=== PATIENT | female | born 1980 | race Caucasian/White ===

== ENCOUNTER 2017-04-29 17:23 | Emergency (ER) | payer OTHER ==
[2017-04-29 17:35] VITALS: BP 134/96
[2017-04-29] MEDS ORDERED: Lidocaine 1% 50 ML MDV INJECT ONE (18:08)
[2017-04-29] MEDS ORDERED: Diphtheria,Pertussis(Acell),Tetanus Vaccine 0.5 ML SDV IM ONE (19:12)
[2017-04-29] MEDS ORDERED: Cephalexin 500 MG Cap PO ONE (19:12)
--- NOTE | 2017-04-29 20:02 | EDM.PDOC ---
ED HPI GENERAL MEDICAL PROBLEM - General Chief Complaint: Laceration Stated Complaint: PINKY OF LEFT HAND CAUGHT ON DIRECTOR CORPORATE COMMUNICATIONS Time Seen by Provider: 04/29/17 18:00 Source of Information: Reports: Patient History Limitations: Reports: No Limitations - History of Present Illness INITIAL COMMENTS - FREE TEXT/NARRATIVE: 36-year-old female presents for evaluation treatment of a laceration to the left hand fifth finger. Injury occurred prior to arrival in the ER. Patient works at [employer]. She was at work. Reports that she sliced her finger on a meat stocker. She reports good range of motion and good sensation. No current numbness or tingling. She has a laceration along the ulnar aspect of her left hand fifth finger. She is unsure of last tetanus. She is right-handed. Onset: Today Location: Reports: Upper Extremity, Left Left Hand Pain Score (Numeric/FACES): 7 - Related Data Allergies Allergy/AdvReac Type Severity Reaction Status Date / Time No Known Allergies Allergy Verified 04/29/17 17:32 Home Meds: Home Meds ALPRAZolam [Alprazolam] 0.5 mg PO QID 02/22/15 [History] Sertraline [Zoloft] 200 mg PO DAILY 02/22/15 [History] Cephalexin [IJD: Cephalexin] 500 mg PO .EVERY 8 HOURS #20 cap 04/29/17 [Rx] Topiramate [Topamax] 100 mg PO DAILY 04/29/17 [History] Past Medical History - Past Health History Medical/Surgical History: Denies Medical/Surgical History HEENT History: Reports: Impaired Vision Other HEENT History: Wears glasses Psychiatric History: Reports: Anxiety, Depression Social & Family History - Tobacco Use Smoking Status *Q: Current Every Day Smoker Years of Tobacco use: 10 Packs/Tins Daily: 0.5 - Alcohol Use Days Per Week of Alcohol Use: 7 Number of Drinks Per Day: 10 Total Drinks Per Week: 70 - Recreational Drug Use Recreational Drug Use: No Drug Use in Last 12 Months: No ED ROS GENERAL - Review of Systems Review Of Systems: See Below Skin: Reports: Wound (left hand 5th finger ulnar aspect) Neurological: Denies: Numbness, Tingling ED EXAM, SKIN/RASH Exam: See Below Exam Limited By: No Limitations General Appearance: Alert, WD/WN, No Apparent Distress Respiratory/Chest: No Respiratory Distress Peripheral Pulses: 2+: Radial (L), Radial (R) Extremities: Normal Inspection, Normal Range of Motion (able to flex, extend, adduct and abduct fingers; able to make a fist; able to preform these with and without resistance), Normal Capillary Refill Neurological: Alert, Oriented, Normal Cognition Psychiatric: Normal Affect, Normal Mood Skin: Warm, Dry, Normal Color, Wound/Incision (6cm x2 cm flap laceration (total 10cm long) to the left hand 5th finger ulnar aspect) ED SKIN PROCEDURES - Laceration/Wound Repair Left Finger Lac/Wound length In cm: 10 (flap laceration 10cm in total lenght; wound 6cmx 2cm ) Appearance: Subcutaneous, Linear Distal NVT: Neuro & Vascular Intact, No Tendon Injury Anesthetic Type: Digital Local Anesthesia - Lidocaine (Xylocaine): 1% Plain Local Anesthetic Volume: 4cc Skin Prep: Chlorhexidine (Hibiciens), Saline, Sterile Drape Exploration/Debridement/Repair: No Foreign Material Found Closed with: Sutures Suture Size: other (5-0) # of Sutures: 19 Suture Type: Nylon, Interrupted, Simple Sterile Dressing Applied: Nurse Tetanus Status Addressed: Yes Complications: No Course - Vital Signs Last Recorded V/S: Last Vital Signs Temp 36.9 C 04/29/17 17:33 Pulse 89 04/29/17 17:33 Resp 16 04/29/17 17:33 BP 134/96 H 04/29/17 17:33 Pulse Ox 100 04/29/17 17:33 - Orders/Labs/Meds Orders: Active Orders 24 hr Category Date Time Status Vaccines to be Administered [RC] PER UNIT ROUTINE Care 04/29/17 19:12 Active Meds: Medications Discontinued Medications Generic Name Dose Route Start Last Admin Trade Name Freq PRN Reason Stop Dose Admin Cephalexin 500 mg 04/29/17 19:12 04/29/17 19:16 Keflex PO 04/29/17 19:13 500 mg ONETIME ONE Administration Diphtheria/Tetanus/Acell Pertussis 0.5 ml 04/29/17 19:12 04/29/17 19:16 Adacel IM 04/29/17 19:13 0.5 ml .ONCE ONE Administration Lidocaine HCl 50 ml 04/29/17 18:08 04/29/17 19:16 Xylocaine 1% INJECT 04/29/17 18:09 50 ml ONETIME ONE Administration - Re-Assessments/Exams Free Text/Narrative Re-Assessment/Exam: 04/29/17 19:[address] Wolfe, orthopedics on-call. He does not due skin grafts on hand. Recommend she see the hand surgeon in [place]. Recommended that we sutured the laceration down and have her follow-up. Case discussed with Dr. Bush, ER physician. Recommend she be seen within 1 week. 19 sutures total placed to the left hand fifth finger. Patient tolerated procedure well. There were no complications. She'll be started on Keflex. Tetanus was updated. Instructed to follow up with the hand surgeon this week. Patient placed in a finger splint. No complications. Departure - Departure Time of Disposition: 19:57 Disposition: Home, Self-Care 01 Condition: Fair Clinical Impression: Laceration - Discharge Information Prescriptions: Cephalexin [IJD: Cephalexin] 500 mg PO .EVERY 8 HOURS #20 cap Instructions: Laceration Care, Adult Referrals: PCP,None [Primary Care Provider] - Inocente Henriquez MD [Consulting Physician] - Forms: ED Department Discharge Additional Instructions: Please call Dr. Henriquez's office on Sunday. Call [phone]. Please let them know that your seen in the ER and have a severe laceration that may require a graft. It is recommended that you be seen within a week. Splint on at all times. Wash the wound with gentle soap and water twice a day. Cephalexin 1 3 times a day 7 days. Monitor for signs of infection such as increased swelling, pus or redness. Present to the clinic or the ER should these develop. Note given for work. tetanus was updated tonight. This is good for 10 years. Please return to the ER for any problems, questions or concerns. - My Orders Last 24 Hours: My Active Orders 04/29/17 19:12 Vaccines to be Administered [RC] PER UNIT ROUTINE - Assessment/Plan Last 24 Hours: My Active Orders 04/29/17 19:12 Vaccines to be Administered [RC] PER UNIT ROUTINE
== END 2017-04-29 20:05 | disposition home or self-care (01) ==
LOC: JD.ED 17:23
DX: S61.217A Laceration without foreign body of left little finger without damage to nail, initial encounter (principal); F17.210 Nicotine dependence, cigarettes, uncomplicated; Z79.899 Other long term (current) drug therapy; Z23 Encounter for immunization; W29.0XXA Contact with powered kitchen appliance, initial encounter
CPT/HCPCS: 12004; 90471; 90715; 99283; A9270

== ENCOUNTER 2017-11-23 19:47 | Emergency (ER) | payer SELFPAY ==
[2017-11-23 20:01] VITALS: BP 112/78
--- NOTE | 2017-11-23 21:25 | EDM.PDOC ---
<Bharti Carvalho - Last Filed: 11/23/17 23:21> ED HPI GENERAL MEDICAL PROBLEM - General Chief Complaint: Skin Complaint Stated Complaint: POSS INGROWN HAIR IN VAGINAL AREA Time Seen by Provider: 11/23/17 21:00 Source of Information: Reports: Patient History Limitations: Reports: No Limitations - History of Present Illness INITIAL COMMENTS - FREE TEXT/NARRATIVE: This is a 37-year-old female that comes in complaining of a ingrown hair in her vaginal lip area 2 days. She states the pain has been getting worse with movement, stating is a 6.5/10. When she is not moving is a 1.5/10. She has not tried any pain medication or warm soaks at home, but she does say she popped it and got some drainage but has had no relief. She's never had anything like this before. She states she has no history of MRSA or diabetes. Perineal Area Pain Score (Numeric/FACES): 10 - Related Data Allergies Allergy/AdvReac Type Severity Reaction Status Date / Time No Known Allergies Allergy Verified 11/23/17 20:01 Home Meds: Home Meds ALPRAZolam [Alprazolam] 0.5 mg PO QID 02/22/15 [History] Sertraline [Zoloft] 200 mg PO DAILY 02/22/15 [History] Topiramate [Topamax] 100 mg PO DAILY 04/29/17 [History] Past Medical History - Past Health History Medical/Surgical History: Denies Medical/Surgical History HEENT History: Reports: Impaired Vision Other HEENT History: Wears glasses Psychiatric History: Reports: Anxiety, Depression Social & Family History - Tobacco Use Smoking Status *Q: Current Every Day Smoker Years of Tobacco use: 15 Packs/Tins Daily: 1 - Recreational Drug Use Recreational Drug Use: No ED ROS GENERAL - Review of Systems Review Of Systems: See Below Constitutional: Reports: No Symptoms. Denies: Fever, Chills HEENT: Reports: No Symptoms Respiratory: Reports: No Symptoms Cardiovascular: Reports: No Symptoms Endocrine: Reports: No Symptoms GI/Abdominal: Reports: No Symptoms : Reports: No Symptoms Musculoskeletal: Reports: No Symptoms Skin: Reports: Other (ingrown hair in vaginal lip, left side) Neurological: Reports: No Symptoms Psychiatric: Reports: No Symptoms Hematologic/Lymphatic: Reports: No Symptoms Immunologic: Reports: No Symptoms ED EXAM, SKIN/RASH Exam: See Below Exam Limited By: No Limitations General Appearance: Alert, WD/WN, Mild Distress Eye Exam: Bilateral Eye: Normal Inspection, PERRL Ears: Normal External Exam, Normal Canal, Hearing Grossly Normal, Normal TMs Nose: Normal Inspection, Normal Mucosa, No Blood Throat/Mouth: Normal Inspection, Normal Lips, Normal Teeth, Normal Gums, Normal Oropharynx, Normal Voice, No Airway Compromise Head: Atraumatic, Normocephalic Neck: Normal Inspection, Supple, Non-Tender, Full Range of Motion Respiratory/Chest: No Respiratory Distress, Lungs Clear, Normal Breath Sounds, No Accessory Muscle Use, Chest Non-Tender Cardiovascular: Normal Peripheral Pulses, Regular Rate, Rhythm, No Edema, No Gallop, No JVD, No Murmur, No Rub Peripheral Pulses: 3+: Posterior Tibial (L), Posterior Tibial (R), Dorsalis Pedis (L), Dorsalis Pedis (R) GI/Abdominal: Normal Bowel Sounds, Soft, Non-Tender, No Organomegaly, No Distention, No Abnormal Bruit, No Mass (Female) Exam: Normal External Exam, Other (bartholin's cyst at 5'oclock, half dollar size) Rectal (Female) Exam: Deferred Back Exam: Normal Inspection, Full Range of Motion, NT Extremities: Normal Inspection, Normal Range of Motion, Non-Tender, No Pedal Edema, Normal Capillary Refill Neurological: Alert, Oriented, CN II-XII Intact, Normal Cognition, Normal Gait, Normal Reflexes, No Motor/Sensory Deficits Psychiatric: Normal Affect, Normal Mood Skin: Warm, Dry, Intact, Increased Warmth, Other (bartholin's cyst at 5'oclock) Location, Skin: Genital Characteristics: Erythematous Associated features: Tenderness, Induration Lymphatic: No Adenopathy ED SKIN PROCEDURES - I&D Site: vaginal area, 5'oclock region Skin Prep: Chlorhexidine (Hibiciens), Saline, Sterile Drape Local Anesthesia: Lidocaine: 1% Plain Local Anesthetic Volume: 2cc Area Incised With: 11 Blade Drainage: Purulent, Bloody, Moderate Amount Probed to Break Up Loculations: Yes Packed With: None (attempted word catheter- unsuccessful) Sterile Dressing: None Complications: No Course - Vital Signs Last Recorded V/S: Last Vital Signs Temp 98.5 F 11/23/17 19:58 Pulse 88 11/23/17 19:58 Resp 18 11/23/17 19:58 BP 112/78 11/23/17 19:58 Pulse Ox 100 11/23/17 19:58 - Orders/Labs/Meds Meds: Medications Discontinued Medications Generic Name Dose Route Start Last Admin Trade Name Cherry PRN Reason Stop Dose Admin Lidocaine HCl 20 ml 11/23/17 21:18 11/23/17 21:33 Xylocaine 1% INJECT 11/23/17 21:19 Not Given ONETIME ONE Lidocaine HCl 10 ml 11/23/17 21:26 11/23/17 21:33 Xylocaine 1% INJECT 11/23/17 21:27 10 ml ONETIME ONE Administration Lidocaine HCl Confirm 11/23/17 21:25 11/23/17 21:30 Xylocaine 1% Administered 11/23/17 21:26 Not Given Dose 10 ml .ROUTE .STK-MED ONE Oxycodone/Acetaminophen 1 tab 11/23/17 21:18 11/23/17 21:32 Percocet 325-5 Mg PO 11/23/17 21:19 1 tab ONETIME ONE Administration Departure - Departure Disposition: Home, Self-Care 01 Condition: Fair Clinical Impression: Bartholin's gland abscess - Discharge Information Instructions: Bartholin Cyst or Abscess, [id number] Referrals: Nat Moon NP [Primary Care Provider] - Perla Barnhart MD [Physician] - Forms: ED Department Discharge Additional Instructions: Rx for percocet 5-325mg 1-2 tabs PO every 6 hours prn pain#20 Rx for bactrim DS bid x 7 days #14 given from [facility] You were given medication in the ER that can affect your ability to drive and operate machinery. Do not drive or operate machinery within 12 hours of taking prescription narcotic pain medication. [id number] Tylenol or Motrin seen for pain relief. Do not take more than 4 g of Tylenol from all sources in 1 day. Do not take more than 3200 mg of ibuprofen from alls sources in 1 day. Percocet 1-2 tabs by mouth every 6 hours as needed for pain. Percocet is habit-forming, take as few these as needed to control your pain. Do not drive or operate machinery within 12 hours of taking prescription narcotic pain medication. warm, compress to the area 3-4 times a day for 15 -20 minutes Bactrim DS bid x 7 days. Follow-up with Dr. Barnhart or Sunday if not much better. Call [phone] to schedule with her. Please return to the ER should if your symptoms change or worsen. <Shi Posada - Last Filed: 11/24/17 11:28> Course - Re-Assessments/Exams Free Text/Narrative Re-Assessment/Exam: 11/23/17 22:47 I&D of a left Bartholin abscess performed. Unable to get the word catheter in place. Patient tolerated the procedure well. Purulent thick discharge and blood present. She put on Bactrim twice a day and given Percocet for pain. Follow-up with OB if her symptoms continue this week. Discharge instructions as documented. Departure - Departure Time of Disposition: 22:47 Condition: Fair
[2017-11-23] MEDS: Lidocaine 1% 10 ML MDV ONE (21:30)
[2017-11-23] MEDS: Acetaminophen/oxyCODONE 325-5 MG Tab PO ONE (21:32)
[2017-11-23] MEDS: Lidocaine 1% 20 ML MDV INJECT ONE (21:33)
[2017-11-23] MEDS: Lidocaine 1% 10 ML MDV INJECT ONE (21:33)
== END 2017-11-23 22:57 | disposition home or self-care (01) ==
LOC: JD.ED 19:47
DX: N75.1 Abscess of Bartholin's gland (principal); F17.210 Nicotine dependence, cigarettes, uncomplicated; F41.9 Anxiety disorder, unspecified; F32.9 Major depressive disorder, single episode, unspecified; Z79.899 Other long term (current) drug therapy
CPT/HCPCS: 56420; 99283; A9270; 10060; 10061

== ENCOUNTER 2019-09-19 20:23 | Emergency (ER) | payer SELFPAY ==
[2019-09-19 20:38] VITALS: BP 147/94; PULSE 100
--- NOTE | 2019-09-19 21:31 | EDM.PDOC ---
ED HPI GENERAL MEDICAL PROBLEM - General Chief Complaint: General Stated Complaint: SWELLING LEGS ANKLES WHOLE BODY AND SOB Time Seen by Provider: 09/19/19 21:15 Source of Information: Reports: Patient History Limitations: Reports: No Limitations - History of Present Illness INITIAL COMMENTS - FREE TEXT/NARRATIVE: This is a 38-year-old female. She states 2 weeks ago she stopped drinking alcohol. She also stopped her Topamax and citalopram. She apparently has a new job and she is up on her feet quite a bit and she is noted over the last 2 weeks increasing swelling in her lower extremities. She says she has increasing swelling all over her body but is worse in her lower extremities. In the mornings it seems like it is worse and seems to include the upper extremities though they are not swollen presently. And sometimes when she lies down she gets a little short of breath. Denies any congestion she denies any sore throat no cough no fever. - Related Data Allergies Allergy/AdvReac Type Severity Reaction Status Date / Time No Known Allergies Allergy Verified 09/19/19 20:38 Home Meds: Home Meds ALPRAZolam [Alprazolam] 0.5 mg PO QID 02/22/15 [History] Past Medical History - Past Health History Medical/Surgical History: Denies Medical/Surgical History HEENT History: Reports: Impaired Vision Other HEENT History: Wears glasses Psychiatric History: Reports: Addiction, Anxiety, Depression Other Psychiatric History: ETOH abuse - Past Surgical History HEENT Surgical History: Reports: Oral Surgery GI Surgical History: Reports: Appendectomy, Bariatric Procedure Other GI Surgeries/Procedures: gastric bipass Social & Family History - Family History Family Medical History: Noncontributory - Tobacco Use Smoking Status *Q: Current Every Day Smoker Years of Tobacco use: 15 Packs/Tins Daily: 0.5 - Caffeine Use Caffeine Use: Reports: None - Recreational Drug Use Recreational Drug Use: No - Living Situation & Occupation Living situation: Reports: (), Other (with friends) Occupation: Unemployed ED ROS GENERAL - Review of Systems Review Of Systems: See Below Constitutional: Denies: Fever, Chills HEENT: Reports: No Symptoms Respiratory: Reports: Shortness of Breath. Denies: Wheezing, Cough Cardiovascular: Denies: Chest Pain Endocrine: Reports: No Symptoms GI/Abdominal: Denies: Abdominal Pain, Diarrhea, Nausea, Vomiting : Reports: No Symptoms Musculoskeletal: Reports: Other (Full edema and soreness of the skin) Skin: Reports: Other (As per HPI) Neurological: Reports: No Symptoms Psychiatric: Reports: No Symptoms Hematologic/Lymphatic: Reports: No Symptoms ED EXAM, GENERAL - Physical Exam Exam: See Below Exam Limited By: No Limitations General Appearance: Alert, WD/WN, No Apparent Distress Eye Exam: Bilateral Eye: Normal Inspection Ears: Normal External Exam Throat/Mouth: Normal Voice, No Airway Compromise Head: Normocephalic Neck: Supple Respiratory/Chest: No Respiratory Distress, Lungs Clear, Normal Breath Sounds Cardiovascular: Regular Rate, Rhythm, No Murmur GI/Abdominal: Soft, Non-Tender, Other (You not really noticed any swelling of her abdomen or the prepubertal area) Back Exam: Full Range of Motion Extremities: Other (Upper extremities do not appear to have any edema, her lower extremities do have 1+ in the feet and trace up the shins, it is slightly pitting) Neurological: Alert, Oriented Psychiatric: Normal Affect, Normal Mood Skin Exam: Warm, Dry Course - Vital Signs Last Recorded V/S: Last Vital Signs Temp 98.9 F 09/19/19 20:35 Pulse 100 09/19/19 20:35 Resp 15 09/19/19 20:35 BP 147/94 H 09/19/19 20:35 Pulse Ox 100 09/19/19 20:35 - Orders/Labs/Meds Labs: Laboratory Tests 09/19/19 09/19/19 Range/Units 21:40 21:40 WBC 6.94 (3.98-10.04) K/mm3 RBC 2.45 L (3.98-5.22) M/mm3 Hgb 7.5 L D (11.2-15.7) gm/dl Hct 25.4 L (34.1-44.9) % MCV 103.7 H D (79.4-94.8) fl MCH 30.6 (25.6-32.2) pg MCHC 29.5 L (32.2-35.5) g/dl RDW Std Deviation 66.3 H (36.4-46.3) fL Plt Count 257 (182-369) K/mm3 MPV 10.5 (9.4-12.3) fl Neut % (Auto) 53.5 (34.0-71.1) % Lymph % (Auto) 26.9 (19.3-51.7) % Wise % (Auto) 11.5 (4.7-12.5) % Eos % (Auto) 6.6 H (0.7-5.8) Baso % (Auto) 1.2 (0.1-1.2) % Neut # (Auto) 3.71 (1.56-6.13) K/mm3 Lymph # (Auto) 1.87 (1.18-3.74) K/mm3 Wise # (Auto) 0.80 H (0.24-0.36) K/mm3 Eos # (Auto) 0.46 H (0.04-0.36) K/mm3 Baso # (Auto) 0.08 (0.01-0.08) K/mm3 Manual Slide Review Abnormal smear Sodium 144 (136-145) mEq/L Potassium 3.4 L (3.5-5.1) mEq/L Chloride 110 H (98-107) mEq/L Carbon Dioxide 23 (21-32) mEq/L Anion Gap 14.4 (5-15) BUN 18 (7-18) mg/dL Creatinine 0.8 (0.55-1.02) mg/dL Est Cr Clr Drug Dosing 94.54 mL/min Estimated GFR (MDRD) > 60 (>60) mL/min BUN/Creatinine Ratio 22.5 H (14-18) Glucose 90 (74-106) mg/dL Calcium 8.4 L (8.5-10.1) mg/dL Magnesium 1.8 (1.8-2.4) mg/dl Total Bilirubin 0.2 (0.2-1.0) mg/dL AST 16 (15-37) U/L ALT 17 (14-59) U/L Alkaline Phosphatase 74 (46-116) U/L Total Protein 6.2 L (6.4-8.2) g/dl Albumin 2.9 L (3.4-5.0) g/dl Globulin 3.3 gm/dL Albumin/Globulin Ratio 0.9 L (1-2) - Re-Assessments/Exams Free Text/Narrative Re-Assessment/Exam: 09/19/19 22:42 I printed out the lab results and took him to the patient and explained that she is very anemic and has a folic acid deficiency from her drinking alcohol. I indicated I was proud that she had stopped drinking 2 weeks ago and I encouraged her to stay stopped. Looks like her sodium and potassium and magnesium are back to normal. Her total protein and albumin are very low and I believe that is why she is developing peripheral edema. I explained that the liver provides the albumin which keeps the fluid in the cells and when it gets low the fluid leaks into the tissues. I suggested some compression stockings to above the knee to help push that fluid out of her feet and lower legs. I also encouraged her to call her family doctor for monitoring of her hemoglobin. The patient indicates to me she has no history of blood in her urine or blood in her stool or bleeding heavily. I have encouraged her to elevate her legs when she is lying down. I will give her a few days off work to be able to get her compression stockings and hopefully relieve some of the swelling. I do not think a fluid pill at this time is appropriate since the mechanism is related to her low albumin and total protein and her liver function. I also encouraged her to drink protein shake at least once a day to make sure she is getting enough protein. Departure - Departure Time of Disposition: 22:45 Disposition: Home, Self-Care 01 Condition: Fair Clinical Impression: Folic acid deficiency, Hypoalbuminemia, Hypoproteinemia, Peripheral edema Anemia Qualifiers: Anemia type: folate deficiency Folate deficiency anemia type: unspecified folate deficiency Qualified Code(s): D52.9 - Folate deficiency anemia, unspecified Fluid excess Qualifiers: Hypervolemia type: unspecified Qualified Code(s): E87.70 - Fluid overload, unspecified - Discharge Information *PRESCRIPTION DRUG MONITORING PROGRAM REVIEWED*: Not Applicable *COPY OF PRESCRIPTION DRUG MONITORING REPORT IN PATIENT PERI: Not Applicable Instructions: Edema, [id number] Referrals: PCP,None [Primary Care Provider] - Forms: ED Department Discharge, ED Return to Work/School Form Additional Instructions: Continue to drink lots of water but no more than 60 ounces a day, it some compression stockings that at least a go above the knee and wear them when you are up but you may take them off when you are lying down or sleeping, make sure you get at least 20 to 25 g of protein a day in your diet, you need to follow- up with your family doctor regarding your anemia which I believe is Folic acid deficiency so make sure you stay on your vitamins that you are taking, your doctor on Sunday tell them you are in the ER and that she needs follow-up and I am sure they will see you this week. Urine to the ER as needed. Sepsis Event Note - Evaluation Sepsis Screening Result: No Definite Risk - Focused Exam Vital Signs: Vital Signs Temp Pulse Resp BP Pulse Ox 09/19/19 20:35 98.9 F 100 15 147/94 H 100 Date Exam was Performed: 09/19/19 Time Exam was Performed: 22:42
== END 2019-09-19 23:03 | disposition home or self-care (01) ==
LOC: JD.ED 20:23
DX: R60.0 Localized edema (principal); E88.09 Other disorders of plasma-protein metabolism, not elsewhere classified; E77.8 Other disorders of glycoprotein metabolism; D52.9 Folate deficiency anemia, unspecified; E87.70 Fluid overload, unspecified; F41.9 Anxiety disorder, unspecified; F32.9 Major depressive disorder, single episode, unspecified; F17.210 Nicotine dependence, cigarettes, uncomplicated; Z79.899 Other long term (current) drug therapy
CPT/HCPCS: 36415; 80053; 83735; 85025; 99283

== ENCOUNTER 2019-11-01 21:23 | Emergency (ER) | payer SELFPAY ==
[2019-11-01 21:37] VITALS: BP 127/97; PULSE 107
--- NOTE | 2019-11-01 21:49 | EDM.PDOCBH ---
ED HPI GENERAL MEDICAL PROBLEM - General Chief Complaint: Drug or Alcohol Abuse Stated Complaint: INTOXICATED NEEDS DETOX Time Seen by Provider: 11/01/19 21:31 Source of Information: Reports: Patient History Limitations: Reports: Intoxication - History of Present Illness INITIAL COMMENTS - FREE TEXT/NARRATIVE: This is a 39-year-old female. She is well-known to the ER. She comes tonight and she is dropped off by her fianc because she has been drinking a lot of whiskey today and her last drink was 20 minutes ago. The patient has a history of heavy drinking for the last 10 years. She does have a history of acute pancreatitis and alcoholic hepatitis as well as thrombocytopenia EMEA related to folic acid low potassium and low magnesium as well as low proteins and albumin. The patient cannot really add to this history other than saying that she has been drinking. She does indicate that when she stops drinking and become sober she has nightmares and she goes through some withdrawal. She is obviously not going through withdrawal at this time. She denies any recent illnesses no colds no coughs no fever no chills she denies any vomiting. - Related Data Allergies Allergy/AdvReac Type Severity Reaction Status Date / Time No Known Allergies Allergy Verified 11/01/19 21:31 Home Meds: Home Meds ALPRAZolam [Alprazolam] 0.5 mg PO QID 02/22/15 [History] Past Medical History - Past Health History Medical/Surgical History: Denies Medical/Surgical History HEENT History: Reports: Impaired Vision Other HEENT History: Wears glasses Psychiatric History: Reports: Addiction, Anxiety, Depression Other Psychiatric History: ETOH abuse - Past Surgical History HEENT Surgical History: Reports: Oral Surgery GI Surgical History: Reports: Appendectomy, Bariatric Procedure Other GI Surgeries/Procedures: gastric bipass Social & Family History - Family History Family Medical History: Noncontributory - Tobacco Use Smoking Status *Q: Current Every Day Smoker Years of Tobacco use: 20 Packs/Tins Daily: 0.5 - Caffeine Use Caffeine Use: Reports: Coffee - Recreational Drug Use Recreational Drug Use: No - Living Situation & Occupation Living situation: Reports: (), Other (with friends) Occupation: Unemployed ED ROS GENERAL - Review of Systems Review Of Systems: See Below Constitutional: Denies: Fever, Chills HEENT: Reports: No Symptoms Respiratory: Reports: No Symptoms Cardiovascular: Reports: No Symptoms Endocrine: Reports: No Symptoms GI/Abdominal: Denies: Abdominal Pain, Constipation, Diarrhea, Nausea, Vomiting : Reports: No Symptoms Musculoskeletal: Reports: No Symptoms Skin: Reports: No Symptoms Neurological: Reports: No Symptoms Psychiatric: Reports: Depression, Other (Alcohol abuse) Hematologic/Lymphatic: Reports: Anemia ED EXAM, BEHAVIORAL HEALTH - Physical Exam Exam: See Below Exam Limited By: Intoxication General Appearance: Alert, WD/WN, No Apparent Distress, Lethargic Eye Exam: Bilateral Eye: Normal Inspection Ears: Normal External Exam, Normal Canal, Normal TMs Nose: Normal Inspection Throat/Mouth: Normal Inspection, Normal Lips, Normal Oropharynx, No Airway Compromise, Other (Patient is noted to have slurred speech) Head: Normocephalic Neck: Supple Respiratory/Chest: No Respiratory Distress, Lungs Clear, Normal Breath Sounds Cardiovascular: Regular Rate, Rhythm, No Murmur GI/Abdominal: Soft, Non-Tender, Other (Bowel sounds are present but they are decreased) Back Exam: Full Range of Motion Extremities: Normal Inspection, Normal Range of Motion Neurological: Alert, Other (Due to the patient's inebriation she was brought into the ER by wheelchair because she is having a difficult time keeping her balance) Psychiatric: Alert, Flat Affect, Tearful Skin Exam: Warm, Dry COURSE, BEHAVIORAL HEALTH COMP - Course Vital Signs: Last Vital Signs Temp 98.6 F 11/01/19 21:36 Pulse 107 H 11/01/19 21:36 Resp 16 11/01/19 21:36 BP 127/97 H 11/01/19 21:36 Pulse Ox 98 11/01/19 21:36 Orders, Labs, Meds: Active Orders 24 hr Category Date Time Status UA W/MICROSCOPIC [URIN] Stat Lab 11/01/19 21:50 Ordered Sodium Chloride 0.9% [Normal Saline] 1,000 ml Med 11/01/19 22:00 Active IV ASDIRECTED Sodium Chloride 0.9% [Normal Saline] 1,000 ml Med 11/01/19 23:15 Active IV ASDIRECTED Medication Orders Sodium Chloride (Normal Saline) 1,000 mls @ 1,000 mls/hr IV ASDIRECTED TOM Last Admin: 11/01/19 21:55 Dose: 1,000 mls/hr Sodium Chloride (Normal Saline) 1,000 mls @ 999 mls/hr IV ASDIRECTED [facility] Laboratory Tests 11/01/19 11/01/19 11/01/19 Range/Units 20:50 20:50 20:50 WBC 8.53 (3.98-10.04) K/mm3 RBC 3.40 L (3.98-5.22) M/mm3 Hgb 9.4 L D (11.2-15.7) gm/dl Hct 31.6 L (34.1-44.9) % MCV 92.9 D (79.4-94.8) fl MCH 27.6 (25.6-32.2) pg MCHC 29.7 L (32.2-35.5) g/dl RDW Std Deviation 59.8 H (36.4-46.3) fL Plt Count 157 L D (182-369) K/mm3 MPV 9.9 (9.4-12.3) fl Neut % (Auto) 33.2 L (34.0-71.1) % Lymph % (Auto) 58.6 H (19.3-51.7) % [place] % (Auto) 5.2 (4.7-12.5) % Eos % (Auto) 2.3 (0.7-5.8) Baso % (Auto) 0.5 (0.1-1.2) % Neut # (Auto) 2.83 (1.56-6.13) K/mm3 Lymph # (Auto) 5.00 H (1.18-3.74) K/mm3 [place] # (Auto) 0.44 H (0.24-0.36) K/mm3 Eos # (Auto) 0.20 (0.04-0.36) K/mm3 Baso # (Auto) 0.04 (0.01-0.08) K/mm3 Manual Slide Review Abnormal smear Sodium 149 H (136-145) mEq/L Potassium 3.4 L (3.5-5.1) mEq/L Chloride 110 H (98-107) mEq/L Carbon Dioxide 24 (21-32) mEq/L Anion Gap 18.4 H (5-15) BUN 21 H (7-18) mg/dL Creatinine 0.8 (0.55-1.02) mg/dL Est Cr Clr Drug Dosing TNP Estimated GFR (MDRD) > 60 (>60) mL/min BUN/Creatinine Ratio 26.3 H (14-18) Glucose 100 (74-106) mg/dL Calcium 8.3 L (8.5-10.1) mg/dL Magnesium 2.0 (1.8-2.4) mg/dl Total Bilirubin 0.2 (0.2-1.0) mg/dL AST 19 (15-37) U/L ALT 24 (14-59) U/L Alkaline Phosphatase 76 (46-116) U/L Total Protein 7.5 (6.4-8.2) g/dl Albumin 3.7 (3.4-5.0) g/dl Globulin 3.8 gm/dL Albumin/Globulin Ratio 1.0 (1-2) Lipase 122 (73-393) U/L Ethyl Alcohol 0.45 (0.00) gm% Medications Generic Name Dose Route Start Last Admin Trade Name Freq PRN Reason Stop Dose Admin Sodium Chloride 1,000 mls @ 1,000 mls/hr 11/01/19 22:00 11/01/19 21:55 Normal Saline IV 1,000 mls/hr ASDIRECTED TOM Administration Sodium Chloride 1,000 mls @ 999 mls/hr 11/01/19 23:15 Normal Saline IV ASDIRECTED TOM Discontinued Medications Generic Name Dose Route Start Last Admin Trade Name Freq PRN Reason Stop Dose Admin Ondansetron HCl 4 mg 11/01/19 21:50 11/01/19 21:56 Zofran IVPUSH 11/01/19 21:51 4 mg ONETIME ONE Administration Discharge vs Psych Eval/Treatment:: 11/01/19 22:23 The patient apparently tore out her IV that we had started and she walked around the back of the ER and walked through the [facility] area tearing down part of the plastic wall. She indicates that she wants something done and I explained to her she pulled out the IV that we were doing something with and that we are waiting on her blood work to get back. She somehow thinks that we can give her medicine to make her less drunk. I explained there is no such medicine and that is where fluids do to help her. If she continues to be combative and not cooperative I will call the police and have her transported to the [facility] for detox. 05/09/20 23:32 I spoke to the patient's fianc at is going to take 16 or so hours to get the alcohol out of her system and we do not normally house them in the hospital for this to happen. We would like him to go home and get sober and then come back to the ER if they are having withdrawal symptoms and then we can help him through these withdrawal symptoms as they desire to get off alcohol. He states he understands. Departure - Departure Time of Disposition: 23:29 Disposition: Home, Self-Care 01 Condition: Poor Clinical Impression: Alcohol abuse, Alcohol intoxication, Alcohol use disorder - Discharge Information *PRESCRIPTION DRUG MONITORING PROGRAM REVIEWED*: Not Applicable *COPY OF PRESCRIPTION DRUG MONITORING REPORT IN PATIENT PERI: Not Applicable Instructions: Alcohol Use Disorder, Alcohol Intoxication, [id number] Referrals: PCP,None [Primary Care Provider] - Forms: ED Department Discharge Additional Instructions: Go home and sleep to get rid of this alcohol in your system, once you awaken if you are having symptoms of withdrawal such as shaking or seeing things or having nightmares then return to the ER without drinking any more alcohol, as long as you have significant alcohol in your system and your not having withdrawal we will normally not put you in the hospital it is only when you start having withdrawal that we can help you through these symptoms as you want to get off the alcohol, return to the ER as needed Sepsis Event Note - Evaluation Sepsis Screening Result: No Definite Risk - Focused Exam Vital Signs: Vital Signs Temp Pulse Resp BP Pulse Ox 11/01/19 21:36 98.6 F 107 H 16 127/97 H 98 Date Exam was Performed: 11/01/19 Time Exam was Performed: 23:32 - My Orders Last 24 Hours: My Active Orders 11/01/19 21:50 UA W/MICROSCOPIC [URIN] Stat 11/01/19 22:00 Sodium Chloride 0.9% [Normal Saline] 1,000 ml IV ASDIRECTED 11/01/19 23:15 Sodium Chloride 0.9% [Normal Saline] 1,000 ml IV ASDIRECTED - Assessment/Plan Last 24 Hours: My Active Orders 11/01/19 21:50 UA W/MICROSCOPIC [URIN] Stat 11/01/19 22:00 Sodium Chloride 0.9% [Normal Saline] 1,000 ml IV ASDIRECTED 11/01/19 23:15 Sodium Chloride 0.9% [Normal Saline] 1,000 ml IV ASDIRECTED
[2019-11-01] MEDS ORDERED: Ondansetron 4 MG/2 ML SDV IVPUSH ONE (21:50)
[2019-11-01] MEDS ORDERED: Sodium Chloride 0.9% 1,000 ML IV SCH ×2 (22:00→23:15)
== END 2019-11-01 23:44 | disposition home or self-care (01) ==
LOC: JD.ED 21:23
DX: F10.129 Alcohol abuse with intoxication, unspecified (principal); F41.9 Anxiety disorder, unspecified; F32.9 Major depressive disorder, single episode, unspecified; F17.210 Nicotine dependence, cigarettes, uncomplicated; Z90.49 Acquired absence of other specified parts of digestive tract; Z79.899 Other long term (current) drug therapy
CPT/HCPCS: 36415; 80053; 80307; 83690; 83735; 85025; 96374; 99284; J2405; J7030; 99283

== ENCOUNTER 2020-04-23 14:39 | Emergency (ER) | payer MEDICAID ==
[2020-04-23 15:02] VITALS: BP 141/103; PULSE 117
[2020-04-23] MEDS ORDERED: Sodium Chloride 0.9% 1,000 ML IV ONE (15:11)
[2020-04-23] MEDS ORDERED: Sodium Chloride 0.9% 10 ML Syringe FLUSH PRN (15:11)
[2020-04-23] MEDS ORDERED: LORazepam 2 MG/ML SDV IVPUSH ONE (15:11)
[2020-04-23] MEDS ORDERED: Metoclopramide 10 MG/2 ML SDV IVPUSH ONE (15:11)
[2020-04-23] MEDS ORDERED: Folic Acid 1 MG Tab PO ONE (15:11)
[2020-04-23] MEDS ORDERED: Thiamine 100 MG Tab PO ONE (15:11)
--- NOTE | 2020-04-23 15:35 | EDM.PDOC ---
ED HPI GENERAL MEDICAL PROBLEM - General Chief Complaint: Drug or Alcohol Abuse Stated Complaint: DETOX Time Seen by Provider: 04/23/20 15:10 Source of Information: Reports: Patient, Old Records, RN Notes Reviewed History Limitations: Reports: No Limitations - History of Present Illness INITIAL COMMENTS - FREE TEXT/NARRATIVE: Patient is a 39-year-old female who presents to the ED for the evaluation of her alcohol intoxication. She states that she has been sober for about 3 months at this time. She notes that she has had recent foot surgery, and she has been sitting around having nothing to do, so she started drinking again. She is got a 3-day history of drinking 1 bottle of whiskey daily. She states her last alcohol use was at around 11 AM. She states that she started drinking at 5 AM this morning, and she is gotten down about a half bottle of whiskey today. She states that she has a history of anxiety depression, her primary care provider is Lynne Thompson. Patient states that she would like some help to stop drinking again, she is rather tearful in the room. Patient denies any other sick-like symptoms, fever/chills, cough/shortness of breath, nausea/vomiting/diarrhea. Patient notes she has a roughly 10-year history of drinking alcohol in entirety Bilateral Foot Pain Score (Numeric/FACES): 5 - Related Data Allergies Allergy/AdvReac Type Severity Reaction Status Date / Time No Known Allergies Allergy Verified 04/23/20 15:04 Home Meds: Home Meds ALPRAZolam [Alprazolam] 0.25 mg PO BID PRN 02/22/15 [History] Ferrous Sulfate [Iron] 325 mg PO DAILY 04/23/20 [History] Pnv No.95/Ferrous Fum/Folic AC [ Caplet] 1 cap PO DAILY 04/23/20 [ History] Sertraline [Zoloft] 100 mg PO DAILY 04/23/20 [History] Spironolactone [Aldactone] 25 mg PO DAILY 04/23/20 [History] Past Medical History HEENT History: Reports: Impaired Vision Other HEENT History: Wears glasses BREAD PANNER History: Reports: Other (See Below) Other BREAD PANNER History: iud bleeding since March 12, 2020 Musculoskeletal History: Reports: Other (See Below) Other Musculoskeletal History: bilateral hammer toe surgery Psychiatric History: Reports: Addiction, Anxiety, Depression Other Psychiatric History: ETOH abuse - Past Surgical History HEENT Surgical History: Reports: Oral Surgery GI Surgical History: Reports: Appendectomy, Bariatric Procedure Other GI Surgeries/Procedures: gastric bipass Social & Family History - Family History Family Medical History: Noncontributory - Tobacco Use Tobacco Use Status *Q: Current Every Day Tobacco User Years of Tobacco use: 20 Packs/Tins Daily: 0.5 - Caffeine Use Caffeine Use: Reports: Coffee - Alcohol Use Alcohol Use History: Yes Days Per Week of Alcohol Use: 3 Number of Drinks Per Day: 5 Total Drinks Per Week: 15 Alcohol Use in Last Twelve Months: Yes Alcohol Use Comment: 10-year alcohol use history, she did enjoy a 3-month sober period this year, with current relapse of a 3-day binge history. - Recreational Drug Use Recreational Drug Use: No - Living Situation & Occupation Living situation: Reports: (), Other (with friends) Occupation: Unemployed ED ROS GENERAL - Review of Systems Review Of Systems: Comprehensive ROS is negative, except as noted in HPI. ED EXAM, GENERAL - Physical Exam Exam: See Below Exam Limited By: No Limitations General Appearance: Alert, WD/WN, No Apparent Distress Throat/Mouth: Normal Inspection, Normal Lips, Normal Teeth, Normal Gums, Normal Oropharynx, Normal Voice, No Airway Compromise Head: Atraumatic, Normocephalic Neck: Normal Inspection Respiratory/Chest: No Respiratory Distress, Lungs Clear, Normal Breath Sounds, No Accessory Muscle Use, Chest Non-Tender Cardiovascular: Normal Peripheral Pulses, Regular Rate, Rhythm, No Murmur Peripheral Pulses: 2+: Radial (L), Radial (R) Extremities: Normal Inspection, Normal Capillary Refill Neurological: Alert, Oriented, Normal Cognition, No Motor/Sensory Deficits Psychiatric: Tearful (pt is somewhat dramatic and crying. She is obviously intoxicated at this time.) Skin Exam: Warm, Dry, Intact, Normal Color, No Rash Course - Vital Signs Last Recorded V/S: Last Vital Signs Temp 98.3 F 04/23/20 15:02 Pulse 117 H 04/23/20 15:02 Resp 20 04/23/20 15:02 BP 141/103 H 04/23/20 15:02 Pulse Ox 94 L 04/23/20 15:02 - Orders/Labs/Meds Orders: Active Orders 24 hr Category Date Time Status Peripheral IV Care [RC] . DIRECTED Care 04/23/20 15:11 Active Sodium Chloride 0.9% [Saline Flush] Med 04/23/20 15:11 Active 10 ml FLUSH ASDIRECTED PRN Peripheral IV Insertion Adult [OM.PC] Stat Oth 04/23/20 15:11 Ordered Medication Orders Sodium Chloride (Saline Flush) 10 ml FLUSH ASDIRECTED PRN PRN Reason: Keep Vein Open Last Admin: 04/23/20 15:25 Dose: 10 ml Documented by: JACK Labs: Laboratory Tests 04/23/20 04/23/20 04/23/20 Range/Units 15:25 15:25 15:25 WBC 7.38 (3.98-10.04) K/mm3 RBC 4.28 (3.98-5.22) M/mm3 Hgb 9.7 L (11.2-15.7) gm/dl Hct 33.7 L (34.1-44.9) % MCV 78.7 L D (79.4-94.8) fl MCH 22.7 L (25.6-32.2) pg MCHC 28.8 L (32.2-35.5) g/dl RDW Std Deviation 50.2 H (36.4-46.3) fL Plt Count 219 (182-369) K/mm3 MPV 9.9 (9.4-12.3) fl Neut % (Auto) 56.5 (34.0-71.1) % Lymph % (Auto) 31.6 (19.3-51.7) % [place] % (Auto) 6.2 (4.7-12.5) % Eos % (Auto) 4.7 (0.7-5.8) Baso % (Auto) 0.7 (0.1-1.2) % Neut # (Auto) 4.17 (1.56-6.13) K/mm3 Lymph # (Auto) 2.33 (1.18-3.74) K/mm3 [place] # (Auto) 0.46 H (0.24-0.36) K/mm3 Eos # (Auto) 0.35 (0.04-0.36) K/mm3 Baso # (Auto) 0.05 (0.01-0.08) K/mm3 Manual Slide Review Abnormal smear PT 10.2 (9.7-12.0) SECONDS INR 0.95 Sodium 146 H (136-145) mEq/L Potassium 3.8 (3.5-5.1) mEq/L Chloride 109 H (98-107) mEq/L Carbon Dioxide 22 (21-32) mEq/L Anion Gap 18.8 H (5-15) BUN 18 (7-18) mg/dL Creatinine 0.8 (0.55-1.02) mg/dL Est Cr Clr Drug Dosing 97.13 mL/min Estimated GFR (MDRD) > 60 (>60) mL/min BUN/Creatinine Ratio 22.5 H (14-18) Glucose 108 H (74-106) mg/dL Calcium 8.3 L (8.5-10.1) mg/dL Magnesium 2.0 (1.8-2.4) mg/dl Total Bilirubin 0.2 (0.2-1.0) mg/dL AST 25 (15-37) U/L ALT 26 (14-59) U/L Alkaline Phosphatase 93 (46-116) U/L Total Protein 7.2 (6.4-8.2) g/dl Albumin 3.4 (3.4-5.0) g/dl Globulin 3.8 gm/dL Albumin/Globulin Ratio 0.9 L (1-2) Ethyl Alcohol 0.28 (0.00) gm% 10/30/20 Range/Units 18:05 WBC (3.98-10.04) K/mm3 RBC (3.98-5.22) M/mm3 Hgb (11.2-15.7) gm/dl Hct (34.1-44.9) % MCV (79.4-94.8) fl MCH (25.6-32.2) pg MCHC (32.2-35.5) g/dl RDW Std Deviation (36.4-46.3) fL Plt Count (182-369) K/mm3 MPV (9.4-12.3) fl Neut % (Auto) (34.0-71.1) % Lymph % (Auto) (19.3-51.7) % [place] % (Auto) (4.7-12.5) % Eos % (Auto) (0.7-5.8) Baso % (Auto) (0.1-1.2) % Neut # (Auto) (1.56-6.13) K/mm3 Lymph # (Auto) (1.18-3.74) K/mm3 [place] # (Auto) (0.24-0.36) K/mm3 Eos # (Auto) (0.04-0.36) K/mm3 Baso # (Auto) (0.01-0.08) K/mm3 Manual Slide Review PT (9.7-12.0) SECONDS INR Sodium (136-145) mEq/L Potassium (3.5-5.1) mEq/L Chloride (98-107) mEq/L Carbon Dioxide (21-32) mEq/L Anion Gap (5-15) BUN (7-18) mg/dL Creatinine (0.55-1.02) mg/dL Est Cr Clr Drug Dosing mL/min Estimated GFR (MDRD) (>60) mL/min BUN/Creatinine Ratio (14-18) Glucose (74-106) mg/dL Calcium (8.5-10.1) mg/dL Magnesium (1.8-2.4) mg/dl Total Bilirubin (0.2-1.0) mg/dL AST (15-37) U/L ALT (14-59) U/L Alkaline Phosphatase (46-116) U/L Total Protein (6.4-8.2) g/dl Albumin (3.4-5.0) g/dl Globulin gm/dL Albumin/Globulin Ratio (1-2) Ethyl Alcohol 0.20 (0.00) gm% Meds: Medications Generic Name Dose Route Start Last Admin Trade Name Freq PRN Reason Stop Dose Admin Sodium Chloride 10 ml 04/23/20 15:11 04/23/20 15:25 Saline Flush FLUSH 10 ml ASDIRECTED PRN Administration Keep Vein Open Discontinued Medications Generic Name Dose Route Start Last Admin Trade Name Freq PRN Reason Stop Dose Admin Folic Acid 1 mg 04/23/20 15:11 04/23/20 15:25 Folic Acid PO 04/23/20 15:12 1 mg ONETIME ONE Administration Sodium Chloride 1,000 mls @ 999 mls/hr 04/23/20 15:11 04/23/20 15:25 Normal Saline IV 04/23/20 16:11 999 mls/hr ONETIME ONE Administration Lactated Ringer's 1,000 mls @ 999 mls/hr 04/23/20 16:41 04/23/20 16:55 Ringers, Lactated IV 04/23/20 17:41 999 mls/hr .BOLUS ONE Administration Lorazepam 1 mg 04/23/20 15:11 04/23/20 15:25 Ativan IVPUSH 04/23/20 15:12 1 mg ONETIME ONE Administration Metoclopramide HCl 10 mg 04/23/20 15:11 04/23/20 15:25 Reglan IVPUSH 04/23/20 15:12 10 mg ONETIME ONE Administration Thiamine HCl 100 mg 04/23/20 15:11 04/23/20 15:25 Vitamin B-1 PO 04/23/20 15:12 100 mg ONETIME ONE Administration - Re-Assessments/Exams Free Text/Narrative Re-Assessment/Exam: 04/23/20 15:38 Patient presents to the ED for the evaluation of her alcohol abuse. I have called over to [facility] for possible crisis bed placement, they state that they would have a bed available at this time. Labs are pending, they would like labs faxed to them when these have been resulted. They usually do not except the patient for management until they are under a 0.20 blood alcohol level. Patient is getting some IV fluids, medications to help calm her down, to help sober her up. 04/23/20 19:13 The patient has had 2 L of fluid, her blood alcohol was down to 0.20, but due to the strict rules and regulations at [facility], the patient states she wishes to not go there for alcohol treatment at this time as she cannot smoke, and will need to be on quarantine for 2 weeks. [facility] staff was made aware of this, and they state that they will try to follow-up with her over the weekend to provide her further tools to quit drinking. Patient is okay with this plan should be discharged home as she is feeling fine. Departure - Departure Time of Disposition: 19:14 Disposition: Home, Self-Care 01 Condition: Good Clinical Impression: Alcohol abuse - Discharge Information *PRESCRIPTION DRUG MONITORING PROGRAM REVIEWED*: No *COPY OF PRESCRIPTION DRUG MONITORING REPORT IN PATIENT PERI: No Instructions: Alcohol Abuse and Dependence Information, Adult, Finding Treatment for Addiction Referrals: PCP,Not In Area [Primary Care Provider] - Forms: ED Department Discharge Additional Instructions: You were evaluated in the ER today for your acute alcohol intoxication. You were given 2 bags of IV fluids, along with some IV medications for initial management of your acute alcohol intoxication. This did seem to help sober you up quite a bit. [facility] was contacted on your case regarding possible alcohol treatment. But you declined admission to their crisis bed at this time due to their rules and regulations. The staff at [facility] state that they will try to follow-up with you over the weekend, so please be expecting a call from their staff for further management. If you should need any further help, their crisis center line is [phone], please do not hesitate to call them for further management if you feel you should need some. I recommend that you stay away from alcoholic beverages, try to increase your oral fluid hydration over the next 24 to 48 hours, and also eat a few good meals. Please return to the ER at any time if symptoms change or worsen. Sepsis Event Note (ED) - Evaluation Sepsis Screening Result: No Definite Risk - Focused Exam Vital Signs: Vital Signs Temp Pulse Resp BP Pulse Ox 04/23/20 15:02 98.3 F 117 H 20 141/103 H 94 L - My Orders Last 24 Hours: My Active Orders 04/23/20 15:11 Peripheral IV Care [RC] . DIRECTED Sodium Chloride 0.9% [Saline Flush] 10 ml FLUSH ASDIRECTED PRN Peripheral IV Insertion Adult [OM.PC] Stat - Assessment/Plan Last 24 Hours: My Active Orders 04/23/20 15:11 Peripheral IV Care [RC] . DIRECTED Sodium Chloride 0.9% [Saline Flush] 10 ml FLUSH ASDIRECTED PRN Peripheral IV Insertion Adult [OM.PC] Stat
[2020-04-23] MEDS ORDERED: Lactated Ringers 1,000 ML IV ONE (16:41)
== END 2020-04-23 19:32 | disposition home or self-care (01) ==
LOC: JD.ED 14:39
DX: F10.129 Alcohol abuse with intoxication, unspecified (principal); Y90.7 Blood alcohol level of 200-239 mg/100 ml; F41.9 Anxiety disorder, unspecified; F17.210 Nicotine dependence, cigarettes, uncomplicated; F32.9 Major depressive disorder, single episode, unspecified; Z79.899 Other long term (current) drug therapy
CPT/HCPCS: 36415; 80053; 80307; 83735; 85025; 85610; 96374; 96375; 99284; A9270; J2060; J2765; J7030; J7120

== ENCOUNTER 2020-11-23 19:05 | Emergency (ER) | payer MEDICAID ==
[2020-11-23] MEDS ORDERED: Sodium Chloride 0.9% 10 ML Syringe FLUSH PRN (19:57)
[2020-11-23] MEDS ORDERED: Sodium Chloride 0.9% 1,000 ML IV SCH (20:00)
--- NOTE | 2020-11-23 20:22 | EDM.PDOCBH ---
ED HPI GENERAL MEDICAL PROBLEM - General Chief Complaint: Drug or Alcohol Abuse Stated Complaint: alcohol Time Seen by Provider: 11/23/20 19:55 Source of Information: Reports: Patient, RN Notes Reviewed - History of Present Illness INITIAL COMMENTS - FREE TEXT/NARRATIVE: 40 yr old female comes "for alcohol detox". She was dropped off here intoxicated by her fiance. Has been drinking heavily (whiskey) for about 30 days. Hx of alcohol dependency and abuse for many years. Has been through prior treatment 3 times with last treatment about 7 yrs ago. States she had been "doing better" up until about 30 days ago, drinking some days but not every day. Has not been recently ill. No chest or abd pain. States she does get extremely anxious when she goes without alcohol or tries to stop drinking on her own. - Related Data Allergies Allergy/AdvReac Type Severity Reaction Status Date / Time No Known Allergies Allergy Verified 11/23/20 19:35 Home Meds: Home Meds ALPRAZolam [Alprazolam] 0.25 mg PO BID PRN 02/22/15 [History] Ferrous Sulfate [Iron] 325 mg PO DAILY 04/23/20 [History] Pnv No.95/Ferrous Fum/Folic AC [ Caplet] 1 cap PO DAILY 04/23/20 [History] Sertraline [Zoloft] 100 mg PO DAILY 04/23/20 [History] Topiramate [Topamax] 25 mg PO ASDIRECTED 11/23/20 [History] LORazepam [Ativan] 1 mg PO BID #7 tab 11/24/20 [Rx] Past Medical History - Past Health History Medical/Surgical History: Denies Medical/Surgical History HEENT History: Reports: Impaired Vision Other HEENT History: Wears glasses INTERNET DAT[employer] SPECIALIST History: Reports: Other (See Below) Other INTERNET DAT[employer] SPECIALIST History: iud bleeding since March 12, 2020 Musculoskeletal History: Reports: Other (See Below) Other Musculoskeletal History: bilateral hammer toe surgery Psychiatric History: Reports: Addiction, Anxiety, Depression Other Psychiatric History: ETOH abuse - Infectious Disease History Infectious Disease History: Reports: Chicken Pox - Past Surgical History HEENT Surgical History: Reports: Oral Surgery GI Surgical History: Reports: Appendectomy, Bariatric Procedure Other GI Surgeries/Procedures: gastric bypass - 2008 Social & Family History - Family History Family Medical History: No Pertinent Family History - Tobacco Use Tobacco Use Status *Q: Current Every Day Tobacco User Years of Tobacco use: 20 Packs/Tins Daily: 0.5 - Caffeine Use Caffeine Use: Reports: Coffee, Tea - Recreational Drug Use Recreational Drug Use: No - Living Situation & Occupation Living situation: Reports: (), Other (with friends) Occupation: Unemployed ED ROS GENERAL - Review of Systems Review Of Systems: See Below Constitutional: Denies: Fever, Chills HEENT: Denies: Throat Pain Respiratory: Denies: Shortness of Breath, Cough Cardiovascular: Denies: Chest Pain GI/Abdominal: Denies: Abdominal Pain, Nausea, Vomiting Musculoskeletal: Reports: No Symptoms Skin: Reports: No Symptoms Neurological: Reports: No Symptoms Psychiatric: Reports: Anxiety, Depression ED EXAM, BEHAVIORAL HEALTH - Physical Exam Exam: See Below General Appearance: Alert, No Apparent Distress Eye Exam: Bilateral Eye: PERRL Ears: Normal External Exam Nose: Normal Inspection Throat/Mouth: Normal Inspection Head: Atraumatic Neck: Supple Respiratory/Chest: No Respiratory Distress, Lungs Clear, Normal Breath Sounds Cardiovascular: Tachycardia GI/Abdominal: Soft, Non-Tender. No: Guarding Extremities: Normal Inspection, Normal Range of Motion Neurological: Alert, No Motor/Sensory Deficits Psychiatric: Alert, Tearful, Other (answering questions and conversing appropriately) COURSE, BEHAVIORAL HEALTH COMP - Course Vital Signs: Last Vital Signs Temp 99.3 F 11/23/20 19:29 Pulse 105 H 11/24/20 06:16 Resp 16 11/24/20 06:16 BP 141/82 H 11/24/20 06:16 Pulse Ox 92 L 11/24/20 06:16 Orders, Labs, Meds: Laboratory Tests 11/23/20 11/23/20 11/23/20 Range/Units 20:18 20:18 20:20 WBC 8.30 (3.98-10.04) K/mm3 RBC 4.60 (3.98-5.22) M/mm3 Hgb 9.6 L (11.2-15.7) gm/dl Hct 33.3 L (34.1-44.9) % MCV 72.4 L D (79.4-94.8) fl MCH 20.9 L (25.6-32.2) pg MCHC 28.8 L (32.2-35.5) g/dl RDW Std Deviation 48.2 H (36.4-46.3) fL Plt Count 275 (182-369) K/mm3 MPV 10.3 (9.4-12.3) fl Neut % (Auto) 62.0 (34.0-71.1) % Lymph % (Auto) 30.5 (19.3-51.7) % [place] % (Auto) 5.2 (4.7-12.5) % Eos % (Auto) 1.1 (0.7-5.8) Baso % (Auto) 1.0 (0.1-1.2) % Neut # (Auto) 5.15 (1.56-6.13) K/mm3 Lymph # (Auto) 2.53 (1.18-3.74) K/mm3 [place] # (Auto) 0.43 H (0.24-0.36) K/mm3 Eos # (Auto) 0.09 (0.04-0.36) K/mm3 Baso # (Auto) 0.08 (0.01-0.08) K/mm3 Manual Slide Review Abnormal smear Sodium 147 H (136-145) mEq/L Potassium 4.2 (3.5-5.1) mEq/L Chloride 108 H (98-107) mEq/L Carbon Dioxide 22 (21-32) mEq/L Anion Gap 21.2 H (5-15) BUN 22 H (7-18) mg/dL Creatinine 0.9 (0.55-1.02) mg/dL Est Cr Clr Drug Dosing 85.50 mL/min Estimated GFR (MDRD) > 60 (>60) mL/min BUN/Creatinine Ratio 24.4 H (14-18) Glucose 95 (70-99) mg/dL Calcium 7.8 L (8.5-10.1) mg/dL Total Bilirubin 0.2 (0.2-1.0) mg/dL AST 26 (15-37) U/L ALT 19 (14-59) U/L Alkaline Phosphatase 98 (46-116) U/L Total Protein 7.3 (6.4-8.2) g/dl Albumin 3.3 L (3.4-5.0) g/dl Globulin 4.0 gm/dL Albumin/Globulin Ratio 0.8 L (1-2) Urine Opiates Screen Negative (GIUGUY=305) Ur Buprenorphine Scrn Negative (CUTOFF=10) Ur Oxycodone Screen Negative (XTX1AV=981) Urine Methadone Screen Negative (TZLMIG=628) Ur Propoxyphene Screen Negative (VWYUVI=699) Ur Barbiturates Screen Negative (CNHZDH=152) Ur Tricyclics Screen Negative (JMTKTF=988) Ur Phencyclidine Scrn Negative (CUTOFF=25) Ur Amphetamine Screen Negative (CBLZYW=185) U Methamphetamines Scrn Negative (LFIVZW=576) U Benzodiazepines Scrn Presumptive positive H (BQIEUL=003) U Cocaine Metab Screen Negative (PSCXCO=304) U Marijuana (THC) Screen Negative (CUTOFF=50) Ethyl Alcohol 0.35 (0.00) gm% SARS-CoV-2 RNA (JUAN) (NEGATIVE) 11/23/20 Range/Units 20:22 WBC (3.98-10.04) K/mm3 RBC (3.98-5.22) M/mm3 Hgb (11.2-15.7) gm/dl Hct (34.1-44.9) % MCV (79.4-94.8) fl MCH (25.6-32.2) pg MCHC (32.2-35.5) g/dl RDW Std Deviation (36.4-46.3) fL Plt Count (182-369) K/mm3 MPV (9.4-12.3) fl Neut % (Auto) (34.0-71.1) % Lymph % (Auto) (19.3-51.7) % [place] % (Auto) (4.7-12.5) % Eos % (Auto) (0.7-5.8) Baso % (Auto) (0.1-1.2) % Neut # (Auto) (1.56-6.13) K/mm3 Lymph # (Auto) (1.18-3.74) K/mm3 [place] # (Auto) (0.24-0.36) K/mm3 Eos # (Auto) (0.04-0.36) K/mm3 Baso # (Auto) (0.01-0.08) K/mm3 Manual Slide Review Sodium (136-145) mEq/L Potassium (3.5-5.1) mEq/L Chloride (98-107) mEq/L Carbon Dioxide (21-32) mEq/L Anion Gap (5-15) BUN (7-18) mg/dL Creatinine (0.55-1.02) mg/dL Est Cr Clr Drug Dosing mL/min Estimated GFR (MDRD) (>60) mL/min BUN/Creatinine Ratio (14-18) Glucose (70-99) mg/dL Calcium (8.5-10.1) mg/dL Total Bilirubin (0.2-1.0) mg/dL AST (15-37) U/L ALT (14-59) U/L Alkaline Phosphatase (46-116) U/L Total Protein (6.4-8.2) g/dl Albumin (3.4-5.0) g/dl Globulin gm/dL Albumin/Globulin Ratio (1-2) Urine Opiates Screen (VXZFNR=612) Ur Buprenorphine Scrn (CUTOFF=10) Ur Oxycodone Screen (COG6DU=286) Urine Methadone Screen (IPUJQD=689) Ur Propoxyphene Screen (TSLDTW=228) Ur Barbiturates Screen (LNCHQU=923) Ur Tricyclics Screen (TKMOMC=615) Ur Phencyclidine Scrn (CUTOFF=25) Ur Amphetamine Screen (UYLNUC=427) U Methamphetamines Scrn (VPSRCJ=704) U Benzodiazepines Scrn (PLTRMK=307) U Cocaine Metab Screen (UTMPQS=241) U Marijuana (THC) Screen (CUTOFF=50) Ethyl Alcohol (0.00) gm% SARS-CoV-2 RNA (JUAN) Negative (NEGATIVE) Medications Discontinued Medications Generic Name Dose Route Start Last Admin Trade Name Freq PRN Reason Stop Dose Admin Sodium Chloride 1,000 mls @ 999 mls/hr 11/23/20 20:00 11/23/20 20:19 Normal Saline IV 999 mls/hr ONETIME TOM Administration Dextrose/Lactated Ringer's 1,000 mls @ 150 mls/hr 11/24/20 00:30 11/24/20 00:36 Dextrose 5%-Lactated Ringers IV 150 mls/hr ASDIRECTED TOM Administration Thiamine HCl 100 mg/ Sodium 101 mls @ 202 mls/hr 11/24/20 06:41 11/24/20 06:48 Chloride IV 11/24/20 06:42 202 mls/hr ONETIME ONE Administration Lorazepam 1 mg 11/24/20 04:33 11/24/20 04:43 Lorazepam 2 Mg/Ml Sdv IVPUSH 11/24/20 04:34 1 mg ONETIME ONE Administration Ondansetron HCl 4 mg 11/24/20 04:33 11/24/20 04:43 Ondansetron 4 Mg/2 Ml Sdv IVPUSH 11/24/20 04:34 4 mg ONETIME ONE Administration Sodium Chloride 10 ml 11/23/20 19:57 11/23/20 20:19 Sodium Chloride 0.9% 10 Ml Syringe FLUSH 10 ml ASDIRECTED PRN Administration Keep Vein Open Re-Assessment/Re-Exam: 23:00. Has been resting comfortably. Blood alcohol came back quite elevated at 0.35. Hard to know how motivated she is to stop drinking until her blood alcohol comes down. We have no hospital beds available for detox at this time. Will watch and treat sx as needed during the night. See how motivated she is for help in the morning and look at options. [facility] may be a good option for her if she is motivated to do that. 06:45. [facility] does have a bed available. I have offered that option for her but after consideration she states she prefers to go home. Have prescribed a limited quantity of ativan to help her try not drink. We did give her a dose of ativan IV about 2 1/2 hrs ago. She is not showing any withdrawal sx at this time. She is encouraged to return to ED as needed. Discharge instr. as documented. Departure - Departure Time of Disposition: 07:20 Disposition: Home, Self-Care 01 Condition: Fair Clinical Impression: Alcohol intoxication Qualifiers: Complication of substance-induced condition: uncomplicated Qualified Code(s): F10.920 - Alcohol use, unspecified with intoxication, uncomplicated Alcohol dependence Qualifiers: Substance use status: unspecified alcohol-induced disorder Qualified Code(s): F10.29 - Alcohol dependence with unspecified alcohol-induced disorder - Discharge Information Prescriptions: LORazepam [Ativan] 1 mg PO BID #7 tab Instructions: Alcohol Intoxication Referrals: PCP,None [Primary Care Provider] - Forms: ED Department Discharge Additional Instructions: Avoid further alcohol. Ativan 1 mg twice daily for 1 to 2 days. Than try go to 0.5 mg or 1/2 tablet twice daily to help not drink alcohol. Prescription has been sent to [facility] located at the [facility]. You may go to [facility] 8 AM Nabil through Sunday to enroll for the programs and help they have available to help you not consume alcohol. Follow up clinic as needed. Return to ED as needed. Sepsis Event Note (ED) - Evaluation Sepsis Screening Result: No Definite Risk
[2020-11-24] MEDS ORDERED: Dextrose 5%-Lactated Ringers 1,000 ML IV SCH (00:30)
[2020-11-24] MEDS ORDERED: LORazepam 2 MG/ML SDV IVPUSH ONE (04:33)
[2020-11-24] MEDS ORDERED: Ondansetron 4 MG/2 ML SDV IVPUSH ONE (04:33)
[2020-11-24 06:17] VITALS: BP 141/82; PULSE 105
[2020-11-24] MEDS ORDERED: Thiamine 100 MG in Sodium Chloride 0.9% 100 ML IV ONE (06:41)
== END 2020-11-24 07:20 | disposition home or self-care (01) ==
LOC: JD.ED 19:05
DX: F10.229 Alcohol dependence with intoxication, unspecified (principal); Y90.5 Blood alcohol level of 100-119 mg/100 ml; Z20.822 Contact with and (suspected) exposure to COVID-19; Z72.0 Tobacco use
CPT/HCPCS: 36415; 80053; 80306; 80307; 85025; 87635; 96365; 96375; 99284; J2060; J2405; J3411; J7030; J7121; U0002

== ENCOUNTER 2021-01-16 19:50 | Emergency (ER) | payer MEDICAID ==
[2021-01-16 20:21] VITALS: BP 140/91; PULSE 106
[2021-01-16] MEDS ORDERED: Ondansetron 4 MG/2 ML SDV IVPUSH ONE (22:46)
--- NOTE | 2021-01-16 22:51 | EDM.PDOC ---
ED HPI GENERAL MEDICAL PROBLEM - General Chief Complaint: Abdominal Pain Stated Complaint: STOMACH PAIN Time Seen by Provider: 01/16/21 21:46 Source of Information: Reports: Patient History Limitations: Reports: No Limitations - History of Present Illness INITIAL COMMENTS - FREE TEXT/NARRATIVE: Ms. Robles is a very pleasant 40-year-old woman who now presents the ED stating that she has had several months of right upper quadrant pain radiating to her right lower quadrant, but that has been worse over the past 10 days. She reports 9 days of constipation, with her last bowel movement yesterday, and 7 days of nausea without emesis. She also reports 2 days of slight dysuria, on and off. No recent fever. Of note, the patient underwent a gastric bypass in 2008, in [place], [place]. She states that she has not previously sought medical evaluation of her symptoms, although she had her IUD checked on Sunday, finding that it was in proper position. She acknowledges that nothing in particular occurred tonight prompting her to come to the ED, other than she is tired of experiencing the symptoms, and stating "I do not know what to do". The patient acknowledges that she is a binge alcoholic, stating that she drank a fifth of rum yesterday. Here in the ED, the patient's initial BP is found to be mildly elevated at 140/91, with slight tachycardia of 106 bpm. She is afebrile, saturating 95% on room air. She appears to be comfortable, in no acute distress. Other than the above symptoms, the patient denies having a recent fever, chills, sore throat, ear pain, nasal or sinus congestion, cough, dyspnea, chest pain, palpitations, vomiting, diarrhea, recent weight gain or weight loss, recent bloody bowel movements or black bowel movements, recent joint aches, headaches, or rashes. The patient's PCP is Lynne Thompson NP. The patient estimates that she last saw Ms. Thompson in March 2020. She does not recall the name of her Business Support Coordinator at [facility]. Right Abdomen Pain Score (Numeric/FACES): 5 - Related Data Allergies Allergy/AdvReac Type Severity Reaction Status Date / Time No Known Allergies Allergy Verified 01/16/21 20:20 Home Meds: Home Meds ALPRAZolam [Alprazolam] 0.25 mg PO BID PRN 02/22/15 [History] Pnv No.95/Ferrous Fum/Folic AC [ Caplet] 1 cap PO DAILY 04/23/20 [History] Sertraline [Zoloft] 100 mg PO DAILY 04/23/20 [History] Topiramate [Topamax] 25 mg PO ASDIRECTED 11/23/20 [History] LORazepam [Ativan] 1 mg PO BID #7 tab 11/24/20 [Rx] Ondansetron [Zofran ODT] 1 tab PO Q8H PRN #10 tab.dis 01/17/21 [Rx] Past Medical History HEENT History: Reports: Impaired Vision (wears glasses) Psychiatric History: Reports: Addiction (alcohol), Anxiety, Depression Endocrine/Metabolic History: Reports: Obesity/BMI 30+ - Infectious Disease History Infectious Disease History: Reports: Chicken Pox - Past Surgical History HEENT Surgical History: Reports: Oral Surgery (dental extractions) GI Surgical History: Reports: Appendectomy, Bariatric Procedure (gastric bypass 2008) Musculoskeletal Surgical History: Reports: Other (See Below) (Bilateral hammertoes) Social & Family History - Tobacco Use Tobacco Use Status *Q: Current Every Day Tobacco User Years of Tobacco use: 20 Packs/Tins Daily: 0.5 Tobacco Use Comment: Started smoking 2000 - Caffeine Use Caffeine Use: Reports: Coffee - Alcohol Use Alcohol Use History: Yes Alcohol Use Frequency: Binges - Recreational Drug Use Recreational Drug Use: Yes Drug Use in Last 12 Months: No Recreational Drug Type: Reports: Marijuana/Hashish (last smoked 2000) - Living Situation & Occupation Living situation: Reports: , with Significant Other (Boyfriend) Occupation: Unemployed ED ROS GENERAL - Review of Systems Review Of Systems: Comprehensive ROS is negative, except as noted in HPI. ED EXAM, GI/ABD - Physical Exam Exam: See Below Exam Limited By: No Limitations General Appearance: Alert, WD/WN, No Apparent Distress Eyes: Bilateral: Normal Appearance, EOMI Ears: Normal External Exam, Hearing Grossly Normal Nose: Normal Inspection Throat/Mouth: Normal Inspection, Normal Lips, Normal Voice, No Airway Compromise Head: Atraumatic, Normocephalic Neck: Normal Inspection, Full Range of Motion Respiratory/Chest: No Respiratory Distress, Lungs Clear, Normal Breath Sounds, No Accessory Muscle Use Cardiovascular: Normal Peripheral Pulses, Regular Rate, Rhythm, No Gallop, No JVD, No Murmur, No Rub GI/Abdominal Exam: Normal Bowel Sounds, Soft, No Organomegaly, No Distention, No Abnormal Bruit, No Mass, Tender (generalized, non-focal) Back Exam: Normal Inspection, Full Range of Motion, NT Extremities: Normal Inspection, Normal Range of Motion, Normal Capillary Refill Neurological: Alert, Oriented, Normal Cognition, No Motor/Sensory Deficits Psychiatric: Normal Affect Skin Exam: Warm, Dry, Intact, Normal Color, No Rash Course - Vital Signs Last Recorded V/S: Last Vital Signs Temp 36.2 C 01/16/21 20:18 Pulse 106 H 01/16/21 20:18 Resp 16 01/16/21 20:18 BP 140/91 H 01/16/21 20:18 Pulse Ox 95 01/16/21 20:18 - Orders/Labs/Meds Orders: Active Orders 24 hr Category Date Time Status Abdomen Pelvis w Cont [CT] Stat Exams 01/16/21 22:46 Ordered Sodium Chloride 0.9% [Normal Saline] 1,000 ml Med 01/16/21 23:00 Active IV ASDIRECTED Sodium Chloride 0.9% [Normal Saline] 100 ml Med 01/17/21 01:30 Active IV ASDIRECTED Sodium Chloride 0.9% [Saline Flush] Med 01/17/21 01:30 Active 10 ml FLUSH BOLUS Medication Orders Sodium Chloride (Normal Saline) 1,000 mls @ 150 mls/hr IV ASDIRECTED TOM Last Admin: 01/16/21 23:08 Dose: 150 mls/hr Documented by: DENISSEMEL Sodium Chloride (Normal Saline) 100 mls @ 60 drops/min IV ASDIRECTED TOM Last Admin: 01/17/21 01:26 Dose: 60 drops/min Documented by: KANE Sodium Chloride (Sodium Chloride 0.9% 10 Ml Syringe) 10 ml FLUSH BOLUS TOM Last Admin: 01/17/21 01:25 Dose: 10 ml Documented by: [email or web address] Labs: Laboratory Tests 01/16/21 01/16/21 01/16/21 Range/Units 21:22 21:22 21:25 WBC 7.36 (3.98-10.04) K/mm3 RBC 4.96 (3.98-5.22) M/mm3 Hgb 11.4 D (11.2-15.7) gm/dl Hct 38.2 (34.1-44.9) % MCV 77.0 L D (79.4-94.8) fl MCH 23.0 L (25.6-32.2) pg MCHC 29.8 L (32.2-35.5) g/dl RDW Std Deviation 61.1 H (36.4-46.3) fL Plt Count 292 (182-369) K/mm3 MPV 10.5 (9.4-12.3) fl Neut % (Auto) 44.0 (34.0-71.1) % Lymph % (Auto) 40.2 (19.3-51.7) % Pettis % (Auto) 13.0 H (4.7-12.5) % Eos % (Auto) 2.0 (0.7-5.8) Baso % (Auto) 0.7 (0.1-1.2) % Neut # (Auto) 3.23 (1.56-6.13) K/mm3 Lymph # (Auto) 2.96 (1.18-3.74) K/mm3 Pettis # (Auto) 0.96 H (0.24-0.36) K/mm3 Eos # (Auto) 0.15 (0.04-0.36) K/mm3 Baso # (Auto) 0.05 (0.01-0.08) K/mm3 Manual Slide Review Abnormal smear Sodium (136-145) mEq/L Potassium (3.5-5.1) mEq/L Chloride (98-107) mEq/L Carbon Dioxide (21-32) mEq/L Anion Gap (5-15) BUN (7-18) mg/dL Creatinine (0.55-1.02) mg/dL Est Cr Clr Drug Dosing mL/min Estimated GFR (MDRD) (>60) mL/min BUN/Creatinine Ratio (14-18) Glucose (70-99) mg/dL Calcium (8.5-10.1) mg/dL Magnesium (1.8-2.4) mg/dL Total Bilirubin (0.2-1.0) mg/dL AST (15-37) U/L ALT (14-59) U/L Alkaline Phosphatase (46-116) U/L Total Protein (6.4-8.2) g/dl Albumin (3.4-5.0) g/dl Globulin gm/dL Albumin/Globulin Ratio (1-2) Lipase (73-393) U/L Urine Color Yellow (Yellow) Urine Appearance Clear (Clear) Urine pH 5.5 (5.0-8.0) Ur Specific Mclain > or = 1.030 (1.005-1.030) Urine Protein 1+ H (Negative) Urine Glucose (UA) Negative (Negative) Urine Ketones Trace H (Negative) Urine Occult Blood Negative (Negative) Urine Nitrite Negative (Negative) Urine Bilirubin Negative (Negative) Urine Urobilinogen 1.0 (0.2-1.0) Ur Leukocyte Esterase Negative (Negative) U Hyaline Cast (Auto) 5-10 H (0-5) /lpf Urine RBC 0-5 (0-5) /hpf Urine WBC 0-5 (0-5) /hpf Ur Squamous Epith Cells 0-5 (0-5) /hpf Urine Bacteria Moderate H (FEW) /hpf Urine Mucus Many H (FEW) /hpf Urine Yeast Few H (NOT SEEN) Urine HCG, Qual Negative (NEGATIVE) 01/16/21 01/16/21 Range/Units 21:25 21:25 WBC (3.98-10.04) K/mm3 RBC (3.98-5.22) M/mm3 Hgb (11.2-15.7) gm/dl Hct (34.1-44.9) % MCV (79.4-94.8) fl MCH (25.6-32.2) pg MCHC (32.2-35.5) g/dl RDW Std Deviation (36.4-46.3) fL Plt Count (182-369) K/mm3 MPV (9.4-12.3) fl Neut % (Auto) (34.0-71.1) % Lymph % (Auto) (19.3-51.7) % Pettis % (Auto) (4.7-12.5) % Eos % (Auto) (0.7-5.8) Baso % (Auto) (0.1-1.2) % Neut # (Auto) (1.56-6.13) K/mm3 Lymph # (Auto) (1.18-3.74) K/mm3 Pettis # (Auto) (0.24-0.36) K/mm3 Eos # (Auto) (0.04-0.36) K/mm3 Baso # (Auto) (0.01-0.08) K/mm3 Manual Slide Review Sodium 143 (136-145) mEq/L Potassium 4.2 (3.5-5.1) mEq/L Chloride 110 H (98-107) mEq/L Carbon Dioxide 19 L (21-32) mEq/L Anion Gap 18.2 H (5-15) BUN 17 (7-18) mg/dL Creatinine 1.2 H (0.55-1.02) mg/dL Est Cr Clr Drug Dosing 61.81 mL/min Estimated GFR (MDRD) 50 (>60) mL/min BUN/Creatinine Ratio 14.2 (14-18) Glucose 112 H (70-99) mg/dL Calcium 8.6 (8.5-10.1) mg/dL Magnesium 2.2 (1.8-2.4) mg/dL Total Bilirubin 0.1 L (0.2-1.0) mg/dL AST 26 (15-37) U/L ALT 36 (14-59) U/L Alkaline Phosphatase 78 (46-116) U/L Total Protein 7.9 (6.4-8.2) g/dl Albumin 3.8 (3.4-5.0) g/dl Globulin 4.1 gm/dL Albumin/Globulin Ratio 0.9 L (1-2) Lipase 168 (73-393) U/L Urine Color (Yellow) Urine Appearance (Clear) Urine pH (5.0-8.0) Ur Specific Mclain (1.005-1.030) Urine Protein (Negative) Urine Glucose (UA) (Negative) Urine Ketones (Negative) Urine Occult Blood (Negative) Urine Nitrite (Negative) Urine Bilirubin (Negative) Urine Urobilinogen (0.2-1.0) Ur Leukocyte Esterase (Negative) U Hyaline Cast (Auto) (0-5) /lpf Urine RBC (0-5) /hpf Urine WBC (0-5) /hpf Ur Squamous Epith Cells (0-5) /hpf Urine Bacteria (FEW) /hpf Urine Mucus (FEW) /hpf Urine Yeast (NOT SEEN) Urine HCG, Qual (NEGATIVE) Meds: Medications Generic Name Dose Route Start Last Admin Trade Name Freq PRN Reason Stop Dose Admin Sodium Chloride 1,000 mls @ 150 mls/hr 01/16/21 23:00 01/16/21 23:08 Normal Saline IV 150 mls/hr ASDIRECTED TOM Administration Sodium Chloride 100 mls @ 60 drops/min 01/17/21 01:30 01/17/21 01:26 Normal Saline IV 60 drops/min ASDIRECTED TOM Administration Sodium Chloride 10 ml 01/17/21 01:30 01/17/21 01:25 Sodium Chloride 0.9% 10 Ml Syringe FLUSH 10 ml BOLUS TOM Administration Discontinued Medications Generic Name Dose Route Start Last Admin Trade Name Cherry PRN Reason Stop Dose Admin Iopamidol 100 ml 01/17/21 01:24 01/17/21 01:25 Iopamidol 612 Mg/Ml 100 Ml Bottle IVPUSH 01/17/21 01:25 100 ml ONETIME ONE Administration Ondansetron HCl 4 mg 01/16/21 22:46 01/16/21 23:08 Ondansetron 4 Mg/2 Ml Sdv IVPUSH 01/16/21 22:47 4 mg ONETIME ONE Administration - Re-Assessments/Exams Free Text/Narrative Re-Assessment/Exam: 01/16/21 22:49 As above, the patient has had right-sided abdominal pain for months, that has been worse over the past 10 days, along with constipation for the past 90s, and nausea for the past 7 days. She also reports of slight dysuria on and off for the past 2 days. No recent fever. On examination, she has generalized abdominal tenderness. A CBC, CMP, and urinalysis, ordered at triage, are grossly unremarkable. I have ordered a magnesium level, lipase level, a urine test, and a CT of the abdomen with oral and IV contrast. In the meantime, the patient will be treated with IV fluid and IV Zofran. She declined an offer for pain medication. 01/16/21 23:24 The patient's magnesium level is within normal limits at 2.2. Her lipase level is within normal limits at 168. Her urine test is negative. 01/17/21 02:38 CT of the abdomen and pelvis with oral and IV contrast is read by Memo as: 1. No cause for acute pain is identified. 2. 4.2 x 4.4 cm right ovarian cyst. 01/17/21 02:58 Test results discussed with the patient. As above, today's work-up is grossly unremarkable, does not explain the cause of her symptoms. I will discharge her home with the recommendation that if her symptoms persist, that she follow-up with her PCP. The patient agreed. I will submit a prescription for Zofran ODT. Departure - Departure Time of Disposition: 02:58 Disposition: Home, Self-Care 01 Condition: Good Clinical Impression: Right-sided abdominal pain of unknown etiology, Nausea - Discharge Information *PRESCRIPTION DRUG MONITORING PROGRAM REVIEWED*: Not Applicable *COPY OF PRESCRIPTION DRUG MONITORING REPORT IN PATIENT PERI: Not Applicable Referrals: Lynne Thompson NP [Primary Care Provider] - Forms: ED Department Discharge Additional Instructions: You were seen in the emergency room for several months of right-sided abdominal pain, worse for the last 10 days, nausea, constipation, and slight discomfort with urination. Work-up in the ER included numerous blood tests, a urinalysis, a urine test, and a CT of your abdomen and pelvis with oral and IV contrast. Your work-up was grossly unremarkable, and does not explain the cause of your symptoms, however, you can be reassured that nothing serious appears to be happening. A prescription for the antinausea medicine Zofran has been sent to the [facility] located in the [employer] [facility] store. You may dissolve 1 tablet of Zofran on your tongue up to every 8 hours, as needed for nausea/vomiting. If your symptoms persist, we recommend that you follow-up with your PCP, Lynne Thompson NP, for further evaluation. If any other problems, please do not hesitate to return to the ER. Sepsis Event Note (ED) - Evaluation Sepsis Screening Result: No Definite Risk - Focused Exam Vital Signs: Vital Signs Temp Pulse Resp BP Pulse Ox 01/16/21 20:18 36.2 C 106 H 16 140/91 H 95 - My Orders Last 24 Hours: My Active Orders 01/16/21 22:46 Abdomen Pelvis w Cont [CT] Stat 01/16/21 23:00 Sodium Chloride 0.9% [Normal Saline] 1,000 ml IV ASDIRECTED 01/17/21 01:30 Sodium Chloride 0.9% [Normal Saline] 100 ml IV ASDIRECTED Sodium Chloride 0.9% [Saline Flush] 10 ml FLUSH BOLUS - Assessment/Plan Last 24 Hours: My Active Orders 01/16/21 22:46 Abdomen Pelvis w Cont [CT] Stat 01/16/21 23:00 Sodium Chloride 0.9% [Normal Saline] 1,000 ml IV ASDIRECTED 01/17/21 01:30 Sodium Chloride 0.9% [Normal Saline] 100 ml IV ASDIRECTED Sodium Chloride 0.9% [Saline Flush] 10 ml FLUSH BOLUS
[2021-01-16] MEDS ORDERED: Sodium Chloride 0.9% 1,000 ML IV SCH (23:00)
[2021-01-17] MEDS ORDERED: Iopamidol 612 MG/ML 100 ML Bottle IVPUSH ONE (01:24)
[2021-01-17] MEDS ORDERED: Sodium Chloride 0.9% 10 ML Syringe FLUSH SCH (01:30)
[2021-01-17] MEDS ORDERED: Sodium Chloride 0.9% 100 ML IV SCH (01:30)
--- NOTE | 2021-01-17 08:03 | CT ---
CT abdomen and pelvis Technique: Multiple axial sections were obtained from above the dome of the diaphragm inferiorly through the pubic symphysis. Intravenous and oral contrast was utilized. Delayed images were also obtained through the abdomen and pelvis. Reconstructed coronal and sagittal images were obtained. Comparison: Prior CT abdomen and pelvis study of 05/08/18. Findings: Visualized lung bases show nothing acute. Liver contains no focal parenchymal abnormality. Spleen size is normal. Small hiatal hernia is noted. Prior stomach surgery is seen. Adrenal glands show no nodule. Pancreas appears within normal limits. Gallbladder contains no calcified gallstones. Kidneys show symmetric contrast enhancement without hydronephrosis or mass. Abdominal aorta shows no aneurysm. No retroperitoneal adenopathy or mesenteric abnormalities are seen. No pelvic mass is seen. IUD is noted within the uterus. Cyst is noted within the right ovary measuring about 3.6 x 3.8 cm. Delayed images show contrast excretion into both ureters as well as into the bladder. No free fluid or inflammatory change is appreciated. Bone window settings were reviewed which show no acute osseous abnormality. Impression: 1. IUD. Small hiatal hernia. Prior stomach surgery. 2. 3.6 x 3.8 cm cyst within the right ovary. 3. Nothing acute is otherwise seen on CT study of the abdomen and pelvis. Diagnostic code #2 I agree with preliminary report from [facility], finalized on 01/17/21, 3:35 AM CDT, code 1
== END 2021-01-17 03:17 | disposition home or self-care (01) ==
LOC: JD.ED 19:50
DX: R10.11 Right upper quadrant pain (principal); R11.0 Nausea; F17.200 Nicotine dependence, unspecified, uncomplicated; E66.9 Obesity, unspecified; Z68.39 Body mass index [BMI] 39.0-39.9, adult; Z79.899 Other long term (current) drug therapy
CPT/HCPCS: 36415; 74177; 80053; 81001; 81025; 83690; 83735; 85025; 96374; 99284; J2405; J7030; Q9967

== ENCOUNTER 2021-01-24 11:37 | Emergency (ER) | payer MEDICAID ==
[2021-01-24] MEDS ORDERED: Thiamine 100 MG Tab PO ONE (12:14)
[2021-01-24] MEDS ORDERED: Sodium Chloride 0.9% 1,000 ML IV ONE (12:14)
[2021-01-24] MEDS ORDERED: Folic Acid 1 MG Tab PO ONE (12:14)
[2021-01-24] MEDS ORDERED: Sodium Chloride 0.9% 10 ML Syringe FLUSH PRN (12:14)
[2021-01-24] MEDS ORDERED: Metoclopramide 10 MG/2 ML SDV IVPUSH ONE (12:14)
--- NOTE | 2021-01-24 12:43 | EDM.PDOCBH ---
ED HPI GENERAL MEDICAL PROBLEM - General Chief Complaint: Drug or Alcohol Abuse Stated Complaint: DETOX Time Seen by Provider: 01/24/21 12:08 Source of Information: Reports: Patient, RN Notes Reviewed History Limitations: Reports: No Limitations - History of Present Illness INITIAL COMMENTS - FREE TEXT/NARRATIVE: Patient is a 40-year-old female who presents to the ER for her alcohol abuse. Patient states that she wants to get help from stopping drinking. Patient notes that she needs to get her life in order, so she can be there for her 18-year-old daughter. States that she has had periods of sobriety in the past, but lately she has been drinking every day, she has been doing this for years. States she drinks about 750 mL bottle of rum or whiskey daily. Patient states that her last drink was around 9 AM this morning, and states that this was 2 sips of rum. States that her last treatment time was about 5 years ago, and she is done this 3 times. Patient is not having any fevers or chills, she is having nausea but no vomiting or diarrhea. Patient notes that she smokes half a pack of cigarettes per day, but does not use any other drugs. Patient states that she does work with a psychiatrist and a therapist for her ongoing anxiety and depression and notes that she is in a good place and she is denying any suicidal ideation. Abdomen Pain Score (Numeric/FACES): 2 - Related Data Allergies Allergy/AdvReac Type Severity Reaction Status Date / Time No Known Allergies Allergy Verified 01/24/21 12:06 Home Meds: Home Meds ALPRAZolam [Alprazolam] 0.25 mg PO TID PRN 02/22/15 [History] Pnv No.95/Ferrous Fum/Folic AC [ Caplet] 1 cap PO DAILY 04/23/20 [History] Sertraline [Zoloft] 200 mg PO DAILY 04/23/20 [History] Topiramate [Topamax] 50 mg PO ASDIRECTED 11/23/20 [History] Ondansetron [Zofran ODT] 4 mg PO Q8H #15 tab.dis 01/24/21 [Rx] Ondansetron [Zofran ODT] 4 mg PO Q8H PRN 01/24/21 [History] Past Medical History HEENT History: Reports: Impaired Vision Other HEENT History: Wears glasses Genitourinary History: Reports: UTI, Recurrent EGG SMELLER History: Reports: , Other (See Below) Other EGG SMELLER History: iud bleeding since March 12, 2020 Musculoskeletal History: Reports: Fracture, Other (See Below) Other Musculoskeletal History: bilateral hammer toe surgery Psychiatric History: Reports: Addiction, Anxiety, Depression Other Psychiatric History: ETOH abuse Endocrine/Metabolic History: Reports: Obesity/BMI 30+ Hematologic History: Reports: Anemia - Infectious Disease History Infectious Disease History: Reports: Chicken Pox - Past Surgical History HEENT Surgical History: Reports: Oral Surgery Other HEENT Surgeries/Procedures: wisdom teeth removed. GI Surgical History: Reports: Appendectomy, Bariatric Procedure Other GI Surgeries/Procedures: gastric bypass - 2008 Musculoskeletal Surgical History: Reports: Other (See Below) Other Musculoskeletal Surgeries/Procedures:: hammer toe repair Social & Family History - Family History Family Medical History: No Pertinent Family History - Tobacco Use Tobacco Use Status *Q: Current Every Day Tobacco User Years of Tobacco use: 20 Packs/Tins Daily: 0.5 - Caffeine Use Caffeine Use: Reports: Coffee, Tea - Alcohol Use Days Per Week of Alcohol Use: 7 Number of Drinks Per Day: 20 Total Drinks Per Week: 140 - Recreational Drug Use Recreational Drug Use: No - Living Situation & Occupation Living situation: Reports: , with Significant Other (Boyfriend) Occupation: Unemployed ED ROS GENERAL - Review of Systems Review Of Systems: Comprehensive ROS is negative, except as noted in HPI. ED EXAM, BEHAVIORAL HEALTH - Physical Exam Exam: See Below Exam Limited By: No Limitations General Appearance: Alert, WD/WN, No Apparent Distress, Anxious (generalized) Eye Exam: Bilateral Eye: Normal Inspection Respiratory/Chest: No Respiratory Distress, Lungs Clear, Normal Breath Sounds, No Accessory Muscle Use, Chest Non-Tender Cardiovascular: Normal Peripheral Pulses, Regular Rate, Rhythm, No Edema GI/Abdominal: Normal Bowel Sounds, Soft, Non-Tender, No Distention, No Mass Extremities: Normal Inspection, Normal Capillary Refill Neurological: Alert, Normal Mood/Affect, Normal Cognition, No Motor/Sensory Deficits Psychiatric: Alert, Normal Cognition, Tearful (generalized). No: Suicidal Plan, Suicidal Thoughts, Auditory Hallucinations, Visual Hallucinations Skin Exam: Warm, Dry, Intact, Normal color, No rash COURSE, BEHAVIORAL HEALTH COMP - Course Vital Signs: Last Vital Signs Temp 97.3 F 08/02/21 12:00 Pulse 93 01/24/21 12:00 Resp 12 01/24/21 12:00 BP 153/90 H 01/24/21 12:00 Pulse Ox 96 01/24/21 12:00 Orders, Labs, Meds: Active Orders 24 hr Category Date Time Status Peripheral IV Care [RC] . DIRECTED Care 01/24/21 12:14 Ordered Sodium Chloride 0.9% [Saline Flush] Med 01/24/21 12:14 Ordered 10 ml FLUSH ASDIRECTED PRN Peripheral IV Insertion Adult [OM.PC] Stat Oth 01/24/21 12:14 Ordered Medication Orders Sodium Chloride (Sodium Chloride 0.9% 10 Ml Syringe) 10 ml FLUSH ASDIRECTED PRN PRN Reason: Keep Vein Open Last Admin: 01/24/21 13:12 Dose: 10 ml Documented by: JAYESH Laboratory Tests 01/24/21 01/24/21 01/24/21 Range/Units 13:00 13:00 13:00 WBC 7.07 (3.98-10.04) K/mm3 RBC 4.96 (3.98-5.22) M/mm3 Hgb 11.2 (11.2-15.7) gm/dl Hct 38.1 (34.1-44.9) % MCV 76.8 L (79.4-94.8) fl MCH 22.6 L (25.6-32.2) pg MCHC 29.4 L (32.2-35.5) g/dl RDW Std Deviation 60.1 H (36.4-46.3) fL Plt Count 271 (182-369) K/mm3 MPV 9.1 L (9.4-12.3) fl Neut % (Auto) 72.4 H (34.0-71.1) % Lymph % (Auto) 20.9 (19.3-51.7) % [place] % (Auto) 4.8 (4.7-12.5) % Eos % (Auto) 0.8 (0.7-5.8) Baso % (Auto) 1.1 (0.1-1.2) % Neut # (Auto) 5.11 (1.56-6.13) K/mm3 Lymph # (Auto) 1.48 (1.18-3.74) K/mm3 [place] # (Auto) 0.34 (0.24-0.36) K/mm3 Eos # (Auto) 0.06 (0.04-0.36) K/mm3 Baso # (Auto) 0.08 (0.01-0.08) K/mm3 Manual Slide Review Abnormal smear PT 10.3 (9.7-12.0) SECONDS INR 0.96 Sodium 145 (136-145) mEq/L Potassium 3.9 (3.5-5.1) mEq/L Chloride 105 (98-107) mEq/L Carbon Dioxide 25 (21-32) mEq/L Anion Gap 18.9 H (5-15) BUN 16 (7-18) mg/dL Creatinine 0.8 (0.55-1.02) mg/dL Est Cr Clr Drug Dosing 96.18 mL/min Estimated GFR (MDRD) > 60 (>60) mL/min BUN/Creatinine Ratio 20.0 H (14-18) Glucose 93 (70-99) mg/dL Calcium 8.2 L (8.5-10.1) mg/dL Magnesium 1.7 L (1.8-2.4) mg/dL Total Bilirubin 0.3 (0.2-1.0) mg/dL AST 35 (15-37) U/L ALT 31 (14-59) U/L Alkaline Phosphatase 90 (46-116) U/L Total Protein 7.4 (6.4-8.2) g/dl Albumin 3.5 (3.4-5.0) g/dl Globulin 3.9 gm/dL Albumin/Globulin Ratio 0.9 L (1-2) Ethyl Alcohol 0.21 (0.00) gm% Medications Generic Name Dose Route Start Last Admin Trade Name Freq PRN Reason Stop Dose Admin Sodium Chloride 10 ml 01/24/21 12:14 01/24/21 13:12 Sodium Chloride 0.9% 10 Ml Syringe FLUSH 10 ml ASDIRECTED PRN Administration Keep Vein Open Discontinued Medications Generic Name Dose Route Start Last Admin Trade Name Freq PRN Reason Stop Dose Admin Folic Acid 1 mg 01/24/21 12:14 01/24/21 13:12 Folic Acid 1 Mg Tab PO 01/24/21 12:15 1 mg ONETIME ONE Administration Sodium Chloride 1,000 mls @ 999 mls/hr 08/02/21 12:14 01/24/21 13:12 Normal Saline IV 01/24/21 13:14 999 mls/hr ONETIME ONE Administration Metoclopramide HCl 10 mg 01/24/21 12:14 01/24/21 13:12 Metoclopramide 10 Mg/2 Ml Sdv IVPUSH 01/24/21 12:15 10 mg ONETIME ONE Administration Thiamine HCl 100 mg 01/24/21 12:14 01/24/21 13:12 Thiamine 100 Mg Tab PO 01/24/21 12:15 100 mg ONETIME ONE Administration Discharge vs Psych Eval/Treatment:: 01/24/21 12:42 Patient presents to the ER for the evaluation of her alcohol abuse, we will go ahead and get basic labs, give her some IV fluids, and nausea meds, plan [facility]ivan taper and Zofran medication. 01/24/21 14:55 Laboratory evaluation is essentially unremarkable, blood alcohol level is 0.21, before IV fluids, so it should be well under the 0.20 level. I did call and talk with [facility], and they state that they do have beds available, they will get the information passed along, and we will try to get the patient into [facility] for alcohol withdrawal management. 01/24/21 16:11 After talking with staff from our CCU, the patient has decided not to go there for alcohol withdrawal management. Due to this fact, I will give her the prescription for Zofran, but have discontinued the Ativan prescription. Patient will need to reappear in the ER for this if she believes she is having issues with stopping drinking otherwise [facility] stated that they would follow-up with her over the next few days. Unfortunately patient's blood alcohol was quite elevated, so she cannot leave as she drove here. If she would like to leave we can call her taxi. Departure - Departure Time of Disposition: 15:03 Disposition: Home, Self-Care 01 Condition: Good Clinical Impression: Alcohol abuse, Alcohol intoxication - Discharge Information *PRESCRIPTION DRUG MONITORING PROGRAM REVIEWED*: Yes *COPY OF PRESCRIPTION DRUG MONITORING REPORT IN PATIENT PERI: No Prescriptions: Ondansetron [Zofran ODT] 4 mg PO Q8H #15 tab.dis Instructions: Alcohol Abuse and Nutrition Referrals: Lynne Thompson NP [Primary Care Provider] - Forms: ED Department Discharge Additional Instructions: You were evaluated in the ER today for your alcohol abuse. You indicated that you wanted help to get sober, so you were given some IV fluids, and had some laboratory evaluation taken at. At this time your blood alcohol level is 0.21. Your case was discussed with on-call staff at [facility], and they do have a bed available for alcohol detox. After talking with [facility] staff, you decided not to go to the [facility] for management, and they will be reaching out to you for ongoing checks to make sure that you are doing okay with your sobriety attempt. You been given a prescription for Zofran, 1 tablet every 8 hours until gone. This medication was electronically sent to the [place] pharmacy located in the [employer] [facility] [place]. Over the next few days, please increase your oral fluid intake to include plenty of fluids that do not contain alcohol, eat a few good meals as well and this should help make the process much easier. Do not hesitate to return to the ER at any time if symptoms change or worsen. Sepsis Event Note (ED) - Evaluation Sepsis Screening Result: No Definite Risk - Focused Exam Vital Signs: Vital Signs Temp Pulse Resp BP Pulse Ox 01/24/21 12:00 97.3 F 93 12 153/90 H 96 - My Orders Last 24 Hours: My Active Orders 01/24/21 12:14 Peripheral IV Care [RC] . DIRECTED Sodium Chloride 0.9% [Saline Flush] 10 ml FLUSH ASDIRECTED PRN Peripheral IV Insertion Adult [OM.PC] Stat - Assessment/Plan Last 24 Hours: My Active Orders 01/24/21 12:14 Peripheral IV Care [RC] . DIRECTED Sodium Chloride 0.9% [Saline Flush] 10 ml FLUSH ASDIRECTED PRN Peripheral IV Insertion Adult [OM.PC] Stat
[2021-01-24 17:24] VITALS: BP 108/61; PULSE 108
== END 2021-01-24 17:20 | disposition home or self-care (01) ==
LOC: JD.ED 11:37
DX: F10.129 Alcohol abuse with intoxication, unspecified (principal); D64.9 Anemia, unspecified; E66.9 Obesity, unspecified; Z68.38 Body mass index [BMI] 38.0-38.9, adult; Y90.0 Blood alcohol level of less than 20 mg/100 ml; Z72.0 Tobacco use; Z79.899 Other long term (current) drug therapy
CPT/HCPCS: 36415; 80053; 80307; 83735; 85025; 85610; 96374; 99284; A9270; J2765; J7030; 99283

== ENCOUNTER 2021-11-21 17:27 | Emergency (ER) | payer MEDICAID ==
[2021-11-21 17:58] VITALS: BP 162/93; PULSE 118
[2021-11-21] MEDS ORDERED: Sodium Chloride 0.9% 10 ML Syringe FLUSH PRN (18:11)
[2021-11-21] MEDS ORDERED: Metoclopramide 10 MG/2 ML SDV IVPUSH ONE (18:11)
[2021-11-21] MEDS ORDERED: Sodium Chloride 0.9% 1,000 ML IV ONE (18:11)
[2021-11-21 18:59] LABS: ESTIMATED GFR > 60 mL/min (>60)
== END 2021-11-21 20:45 | disposition home or self-care (01) ==
LOC: JD.ED 17:27
DX: F10.129 Alcohol abuse with intoxication, unspecified (principal); E66.9 Obesity, unspecified; Z68.36 Body mass index [BMI] 36.0-36.9, adult; Y90.1 Blood alcohol level of 20-39 mg/100 ml
CPT/HCPCS: 36415; 80053; 80307; 83735; 85025; 85610; 96361; 96374; 99284; J2765; J3490; J7030; 99282

== ENCOUNTER 2022-02-01 14:39 | Emergency (ER) | payer MEDICAID ==
[2022-02-01 14:49] VITALS: BP 158/129; PULSE 120
[2022-02-01] MEDS ORDERED: Sodium Chloride 0.9% 10 ML Syringe FLUSH PRN (15:03)
[2022-02-01] MEDS ORDERED: Sodium Chloride 0.9% 1,000 ML IV ONE (15:59)
[2022-02-01] MEDS ORDERED: Ondansetron 4 MG/2 ML SDV IVPUSH ONE (15:59)
[2022-02-01] MEDS ORDERED: Magnesium Sulfate/Water 4 GM in Premix Bag 1 BAG IV ONE (17:08)
[2022-02-01] MEDS ORDERED: Magnesium Oxide 400 MG Tab PO ONE (17:09)
[2022-02-01] MEDS ORDERED: Lactated Ringers 1,000 ML IV ONE (17:09)
[2022-02-01] MEDS ORDERED: LORazepam 2 MG/ML SDV IVPUSH ONE (17:22)
[2022-02-01] MEDS ORDERED: LORazepam 1 MG Tab PO ONE (21:31)
== END 2022-02-01 21:50 | disposition other institution (70) ==
LOC: JD.ED 14:39
DX: F10.930 Alcohol use, unspecified with withdrawal, uncomplicated (principal); I10 Essential (primary) hypertension; R00.0 Tachycardia, unspecified; E66.9 Obesity, unspecified; Z68.30 Body mass index [BMI] 30.0-30.9, adult; Z20.822 Contact with and (suspected) exposure to COVID-19; Y90.0 Blood alcohol level of less than 20 mg/100 ml
CPT/HCPCS: 36415; 80053; 80143; 80179; 80306; 80307; 81001; 81025; 83605; 83735; 84443; 85025; 87635; 93005; 96361; 96365; 96366; 96375; 99285; A9270; J2060; J2405; J3475; J3490; J7030; J7120; 99284; U0002

== ENCOUNTER 2024-08-13 07:08 | Emergency (ER) | payer MEDICAID, OTHER ==
[2024-08-13 08:40] VITALS: BP 112/73; PULSE 72
== END 2024-08-13 08:49 | disposition home or self-care (01) ==
LOC: JD.ED 07:08
DX: S93.402A Sprain of unspecified ligament of left ankle, initial encounter (principal); Z79.899 Other long term (current) drug therapy; W01.0XXA Fall on same level from slipping, tripping and stumbling without subsequent striking against object, initial encounter; X50.1XXA Overexertion from prolonged static or awkward postures, initial encounter; Y93.89 Activity, other specified
CPT/HCPCS: 73610-26-LT; 73610-LT; 99283